=== PATIENT | female | born 1945 | race Caucasian/White ===

== ENCOUNTER → 2016-08-09 | Outpatient (CLI) | payer MEDICARE, BC ==
--- NOTE | 2016-08-09 22:22 | PN ---
71-year-old female patient who is coming in to discuss the results of the sleep study. The patient was suspected to have obstructive sleep apnea based on loud snoring and she had significant crowding of the posterior pharynx along with micrognathia. As such, she was subjected to a screening polysomnogram. The patient was found to have severe FLACO with an apnea-hypopnea index of 18.5. She also demonstrated severe nocturnal oxygen desaturation as the patient spent approximately 20% of the sleep time with a pulse ox of 90% and below. Sleep efficiency in general was poor, and I made recommendations for this patient to proceed with CPAP titration. Nevertheless, the patient was not convinced that this was significant enough and she has not set up titration yet. She is here to discuss with me the results. I am confident the patient will benefit from CPAP therapy based on her severity of illness and based on the various comorbidities and the symptomatic hypersomnia that she is having. BP is 170/70, pulse 74, respirations 16, temperature 97.6 and BMI is 44.9. GENERAL APPEARANCE: Calm, comfortable. HEENT: Negative for goiter or neck mass. Significant crowding of posterior pharynx along with micrognathia and overbite. LUNGS: Clear to auscultation. HEART: Sounds are regular rate and rhythm. Normal S1, S2. No S3, no S4. No murmurs. ABDOMEN: Soft, nontender, no organomegaly. EXTREMITIES: No edema. No cyanosis, or clubbing. IMPRESSION: 1. Severe symptomatic obstructive sleep apnea with an AHI of 80. 2. Obesity. BMI is 44. 3. Chronic hypersomnia. 4. Hypothyroidism. 5. Hypertension. 6. Hyperlipidemia. 7. Claustrophobia. PLAN: Proceed with CPAP titration, disease process was explained to the patient at length. Patient was agreeable to the treatment. Encourage weight loss. Encourage optimizing sleep hygiene measures. We will continue to follow.
== END | disposition home or self-care (01) ==
LOC: SLEEP 13:14
PROVIDERS: ATTEND Internal Medicine Critical Care Medicine
DX: G47.33 Obstructive sleep apnea (adult) (pediatric) (principal); E66.9 Obesity, unspecified; Z68.41 Body mass index [BMI] 40.0-44.9, adult; G47.10 Hypersomnia, unspecified; E03.9 Hypothyroidism, unspecified; I10 Essential (primary) hypertension; E78.5 Hyperlipidemia, unspecified; F40.240 Claustrophobia

== ENCOUNTER → 2016-11-08 | Outpatient (CLI) | payer MEDICARE, BC ==
--- NOTE | 2016-11-08 21:43 | PN ---
A 71-year-old female patient who was diagnosed having severe symptomatic obstructive sleep apnea with an AHI of 80. Currently, she is being treated with CPAP at a pressure of 14 cm of water. Clinically, the patient is feeling much better. She seems to be alert and awake. She reports marked improvement in sleep quality and she is benefiting from the CPAP treatment and she reports her level of alertness during the day is much improved. She is wearing it every night without any interruption and her CPAP use for more than 4 hours is approaching 93%. Average CPAP use 522 minutes. The AHI while on treatment is down to 2.2. The median air leak around the mask is around 7.7 L. The patient has no specific complaints. She is utilizing the treatment without any side effects or complications. She is trying to lose weight. She is also implementing good sleep hygiene measures. BP is 160/82, pulse 62, respirations 16, temperature is 97.7. Weight is 238, saturation 96% on room air. GENERAL APPEARANCE: Calm, comfortable. HEENT: Negative for JVD. There is no goiter, neck masses. LUNGS: Clear to auscultation. HEART: Sounds are regular rate and rhythm. Normal S1, S2. ABDOMEN: Soft, nontender. No organomegaly. EXTREMITIES: No edema. No cyanosis or clubbing. IMPRESSION: 1. Severe symptomatic obstructive sleep apnea with an apnea-hypopnea index of 80, currently on continuous positive airway pressure at a pressure of 14 cm of water. 2. Chronic hypersomnia, improved, and Magna score is down to 3. 3. Morbid obesity with a body mass index of 44. 4. Hypertension. 5. Hypothyroidism. 6. Hyperlipidemia. 7. Hypersomnia, improved. PLAN: 1. Continue CPAP at a level of pressure. 2. Continue the same mask interface, which is a medium size AirFit P10. 3. Encourage further weight loss. 4. If treatment is successful, see me back in followup as needed.
== END | disposition home or self-care (01) ==
LOC: SLEEP 13:09
PROVIDERS: ATTEND Internal Medicine Critical Care Medicine
DX: G47.33 Obstructive sleep apnea (adult) (pediatric) (principal); G47.13 Recurrent hypersomnia; E66.01 Morbid (severe) obesity due to excess calories; Z68.41 Body mass index [BMI] 40.0-44.9, adult

== ENCOUNTER → 2017-12-05 | Outpatient (CLI) | payer MEDICARE, BC ==
--- NOTE | 2017-12-05 19:47 | PN ---
PROGRESS NOTE Mariam is 72 with a known history of obstructive sleep apnea. The patient is coming in for an annual check. The patient has an AHI of 80 and she is on CPAP pressure of 14 cm of water. On today's evaluation she is very compliant and she continues to benefit from the treatment. Humidity has become an issue, as the patient is set at a humidity level of 6, and she is having an excessive amount of water gushing into her mask and then through her airways. She is averaging around 6.3 hours of CPAP use per night. Her weight is down by 2 pounds. Her AHI while on treatment is down to 1.4. Leak factor is 28 L/minute. Her CPAP use for more than 4 hours is 100%. She is using AirFit P10 nose pillows. REVIEW OF SYSTEMS: Twelve-point review of systems was done. Positive findings are mentioned above in the history of present illness. She is losing weight, benefitting from treatment. No major hypersomnia or sleepiness during the day. No snoring while on the treatment. No sleep deprivation. No substance abuse. No chest pain. No shortness of breath. No nausea or vomiting. No palpitation. No swelling in the lower extremities. PHYSICAL EXAMINATION: BP is 148/80, pulse 66, respirations 16, temperature 97.4, saturation 96% on room air. Weight is 236. Height is 5 feet 1 inch. GENERAL APPEARANCE: Calm, comfortable. Head is atraumatic, normocephalic. NECK: Supple. There is no JVD. No goiter or neck masses. Mallampati class IV. LUNGS: Clear to auscultation. HEART: Heart sounds are regular rate and rhythm. Normal S1, S2. No S3, S4. No murmurs. ABDOMEN: Soft, nontender. No organomegaly. EXTREMITIES: No edema. No cyanosis or clubbing. NEUROLOGIC: The patient is alert and oriented x3. There is no focal neurological deficit. PSYCHIATRY: Negative for anxiety or depression. IMPRESSION: Symptomatic obstructive sleep apnea with an apnea/hypopnea index of 80, currently successfully treated with a CPAP pressure of 14 cm of water. PLAN: 1. Continue CPAP at the same level of pressure, which is 14 cm. 2. Drop the humidity down to 3. 3. Continue using the AirFit P10 medium-size nose pillows and renew the CPAP supplies. 4. See me back in a year's time, earlier if needed. MMODL / IJN: [id number] /
== END | disposition home or self-care (01) ==
LOC: SLEEP 14:00
PROVIDERS: ATTEND Internal Medicine Critical Care Medicine
DX: G47.33 Obstructive sleep apnea (adult) (pediatric) (principal); Z53.9 Procedure and treatment not carried out, unspecified reason

== ENCOUNTER → 2019-01-15 | Outpatient (CLI) | payer MEDICARE, BC ==
--- NOTE | 2019-01-15 15:55 | PN ---
PROGRESS NOTE SLEEP CENTER PROGRESS NOTE: This patient is 73, coming in for an annual check regarding obstructive sleep apnea. She is morbidly obese and she has severe obstructive sleep apnea with an AHI of 80. The patient has been on CPAP for many years and currently she is on a pressure of 14 cm of water. On today's evaluation she is having some leaks and dryness in her nose while wearing the AirFit P10 nose pillows. Her leak factor is 32 L/minute on her compliancy data. Her humidity level is set at 5 and temperature of the tubing is at 75. No significant weight gain or weight loss. I checked her compliance data, and the patient is extremely compliant. She has been averaging around 7.2 hours of CPAP use per night, with CPAP use for more than 4 hours being 100%. Her AHI while on treatment is down to 1.4 and she has no specific complaints for now. REVIEW OF SYSTEMS: Fourteen-point review of systems was done. Positive findings are mentioned above in the history of present illness. No recent change in body weight. No major hypersomnia or sleepiness during the day. No snoring while on CPAP treatment. No swallowing of air. No belching or passing gas. No abdominal distention. No nausea or vomiting. No chest pain. No angina. No heartburn. No shortness of breath. No altered mentation at this point in time. No dysuria. No nocturia. PHYSICAL EXAMINATION: CURRENT VITALS: BP is 155/72, pulse 67, respirations 16, temperature 97, saturation 97% on room air. Weight is 242. Height is 5 feet 1 inch. Houston score is 5. BMI 45.7. GENERAL APPEARANCE: Calm, comfortable. HEAD: Atraumatic, normocephalic. NECK: Supple. No JVD. No goiter or neck mass. Mallampati class IV. LUNGS: Clear to auscultation. HEART: Heart sounds are regular rate and rhythm. Normal S1, S2. No S3, S4. No murmurs. ABDOMEN: Soft, nontender. No organomegaly. EXTREMITIES: No edema. No cyanosis or clubbing. NEUROLOGIC: The patient is alert and oriented x3. There are no focal neurological deficits. PSYCHIATRIC: Negative for anxiety or depression. IMPRESSION: 1. Severe obstructive sleep apnea with an apnea/hypopnea index of 80. The patient is currently successfully being treated with CPAP therapy at a pressure of 14 cm of water. 2. Obesity with body mass index of 45.7. 3. Hypersomnia, recovered. PLAN: 1. Offer the patient a DreamWear [id number] mask, medium size. 2. Keep the humidity level between 4 and 5. 3. Compliance data was checked. The patient's use is adequate and she is benefitting from the treatment. I will see her back in the office in a year's time, earlier if needed. Her treatment is successful for now. MMODL / IJN: [id number] / MTDD
== END | disposition home or self-care (01) ==
LOC: SLEEP 13:33
PROVIDERS: ATTEND Internal Medicine Critical Care Medicine
DX: G47.33 Obstructive sleep apnea (adult) (pediatric) (principal); E66.9 Obesity, unspecified; Z68.41 Body mass index [BMI] 40.0-44.9, adult; Z99.89 Dependence on other enabling machines and devices

== ENCOUNTER 2020-08-28 10:17 | Day surgery (SDC) | payer MEDICARE, BC ==
[2020-08-27 11:56] VITALS: BMI 36.6
[2020-08-28 10:44] VITALS: RESP 16; TEMP 98.3
[2020-08-28] MEDS ORDERED: LACTATED RINGERS 1,000 ML IV ONE (10:48)
[2020-08-28] MEDS ORDERED: ONDANSETRON 4 MG/2 ML VIAL IVP ONE (10:49)
[2020-08-28] MEDS ORDERED: LIDOCAINE 1% (10MG/ML) FOR IV START INTRADERMA ONE (10:49)
[2020-08-28] MEDS ORDERED: ONDANSETRON 4 MG/2 ML VIAL ONE (10:51)
[2020-08-28] MEDS ORDERED: PROPOFOL 10 MG/ML 20 ML VIAL IV ONE (11:10)
--- NOTE | 2020-08-28 11:12 | P.GSHP ---
History of Present Illness H&P Date: 08/28/20 75-year-old female presents for screening colonoscopy. She has never had a colonoscopy previously. Denies any blood in her stool. No family history of colon cancer. - Review of Systems All systems: negative Past Medical History Past Medical History: GERD/Reflux, Hyperlipidemia, Hypertension, Osteoarthritis (OA), Sleep Apnea/CPAP/BIPAP, Thyroid Disorder Additional Past Medical History / Comment(s): irregular heart rate. has cpap History of Any Multi-Drug Resistant Organisms: None Reported Past Surgical History: Hysterectomy, Joint Replacement Additional Past Surgical History / Comment(s): lt knee replacement Past Anesthesia/Blood Transfusion Reactions: Family History of Problems w/ An esthesia, Motion Sickness, Postoperative Nausea & Vomiting (PONV) Additional Past Anesthesia/Blood Transfusion Reaction / Comment(s): daughter PONV Smoking Status: Former smoker Medications and Allergies Home Medications Medication Instructions Recorded Confirmed Type Atorvastatin [Lipitor] 40 mg PO DAILY 08/27/20 08/28/20 History Cholecalciferol [Vitamin D3 (25 25 mcg PO DAILY 08/27/20 08/28/20 History Mcg = 1000 Iu)] Furosemide [Lasix] 40 mg PO DAILY 08/27/20 08/28/20 History Lorri 500 mg PO DAILY 08/27/20 08/28/20 History Hydrochlorothiazide 12.5 mg PO DAILY 08/27/20 08/28/20 History [hydroCHLOROthiazide] Levothyroxine Sodium [Synthroid] 112 mcg PO DAILY 08/27/20 08/28/20 History Losartan Potassium [Cozaar] 50 mg PO DAILY 08/27/20 08/28/20 History Multivitamins, Thera [Multivitamin 1 tab PO DAILY 08/27/20 08/28/20 History (formulary)] Naproxen Sodium [Aleve] 220 mg PO DAILY PRN 08/27/20 08/28/20 History Omeprazole 20 mg PO DAILY PRN 08/27/20 08/28/20 History Psyllium Husk (with Sugar) 1 gm PO DAILY 08/27/20 08/28/20 History [Metamucil Powder] Turmeric Root Extract [Turmeric] 500 mg PO DAILY 08/27/20 08/28/20 History Vitamin B Complex 1 each PO DAILY 08/27/20 08/28/20 History Allergies Allergy/AdvReac Type Severity Reaction Status Date / Time meperidine [From Demerol] Allergy Nausea & Verified 08/27/20 11:40 Vomiting Sulfa (Sulfonamide Allergy Itching Verified 08/27/20 11:40 Antibiotics) Surgical - Exam Osteopathic Statement: *. No significant issues noted on an osteopathic structural exam other than those noted in the History and Physical/Consult. Vital Signs Temp Pulse Resp BP Pulse Ox 98.3 F 76 16 173/75 95 08/28/20 10:38 08/28/20 10:38 08/28/20 10:38 08/28/20 10:38 08/28/20 10:38 - General well nourished, no distress - Eyes PERRL - ENT no hearing loss - Respiratory normal respiratory effort - Abdomen Abdomen: soft, non tender - Psychiatric oriented to time, oriented to person, oriented to place Assessment and Plan Plan: Plan is for screening colonoscopy. Risks, benefits and alternatives were provided to the patient. She did provide consent prior to attending the endoscopy suite.
--- NOTE | 2020-08-28 11:35 | P.PCN ---
Date of Procedure: 08/28/20 Preoperative Diagnosis: Screening for colon cancer Postoperative Diagnosis: Rectal polyp Procedure(s) Performed: Colonoscopy with cold forceps polypectomy Anesthesia: MAC Surgeon: Tae García Pathology: other (Rectal polyp) Condition: stable Disposition: same day Indications for Procedure: 75-year-old female presents for screening colonoscopy. She has never had a colonoscopy previously. She denies any blood in her stool and denies any family history of colon cancer. Risks, benefits and alternatives were provided to the patient and she did provide consent prior to attending the endoscopy suite. Operative Findings: Rectal polyp Description of Procedure: The patient was brought into the endoscopy suite. He was then placed in left lateral decubitus position and adequate sedation was achieved using conscious sedation. A digital rectal exam was performed and mild internal hemorrhoids were palpated. An endoscope was then placed in the rectum and advanced to the cecum as identified by landmarks including the appendiceal orifice and the ileocecal valve. The prep was good. The colonoscope was then slowly withdrawn, examining for any mucosal abnormalities. The cecum, ascending, transverse, descending and sigmoid colon were visualized adequately. There were no large neoplastic lesions throughout the colon. A small polyp was noted in the rectum. This was removed with cold forcep polypectomy. Was no evidence of diverticulosis. Retroflexion was performed in the rectum and internal hemorrhoids were visible. Excess air was removed, the colonoscope withdrawn and the procedure terminated. The patient was then transferred to the recovery unit in stable condition. Repeat colonoscopy should be performed in 5 years.
[2020-08-28 11:49] VITALS: BP 129/71; PULSE 56
== END 2020-08-28 12:19 | disposition home or self-care (01) ==
LOC: ORWHC2ENDO 10:17
PROVIDERS: ATTEND Surgery
DX: Z12.11 Encounter for screening for malignant neoplasm of colon (principal); K62.1 Rectal polyp; K64.8 Other hemorrhoids; K21.9 Gastro-esophageal reflux disease without esophagitis; E78.5 Hyperlipidemia, unspecified; I10 Essential (primary) hypertension; M19.90 Unspecified osteoarthritis, unspecified site; G47.33 Obstructive sleep apnea (adult) (pediatric); E07.9 Disorder of thyroid, unspecified; I49.9 Cardiac arrhythmia, unspecified; Z99.89 Dependence on other enabling machines and devices; Z90.710 Acquired absence of both cervix and uterus; Z96.652 Presence of left artificial knee joint; Z91.89 Other specified personal risk factors, not elsewhere classified; Z87.898 Personal history of other specified conditions; Z87.891 Personal history of nicotine dependence; Z79.899 Other long term (current) drug therapy; Z79.890 Hormone replacement therapy; Z79.1 Long term (current) use of non-steroidal anti-inflammatories (NSAID); Z88.5 Allergy status to narcotic agent; Z88.2 Allergy status to sulfonamides; Z84.89 Family history of other specified conditions
CPT/HCPCS: 88305; 45380; J2405; J2704

== ENCOUNTER → 2020-09-23 | Outpatient (CLI) | payer MEDICARE, BC ==
--- NOTE | 2020-09-24 10:32 | MM ---
Reason for exam: screening (asymptomatic). Last mammogram was performed 6 years and 2 months ago. History: Patient is postmenopausal. Physical Findings: A clinical breast exam by your physician is recommended on an annual basis and results should be correlated with mammographic findings. MG 3D Screening Mammo W/Cad Bilateral CC and MLO view(s) were taken. XCCL view(s) were taken of the left breast. Prior study comparison: August 07, 2014, bilateral MG screening mammo w CAD. October 04, 2004, bilateral screening mammogram. There are scattered fibroglandular densities. Stable benign calcifications. There is no discrete abnormality. No significant changes when compared with prior studies. ASSESSMENT: Benign, BI-RAD 2 RECOMMENDATION: Routine screening mammogram of both breasts in 1 year.
== END | disposition home or self-care (01) ==
LOC: RADMAMWWP 08:31
PROVIDERS: ATTEND Family Medicine
DX: Z12.31 Encounter for screening mammogram for malignant neoplasm of breast (principal); Z78.0 Asymptomatic menopausal state
CPT/HCPCS: 77063; 77067

== ENCOUNTER 2021-06-22 06:02 | Day surgery (SDC) | payer MEDICARE, BC ==
[2021-06-17 09:18] VITALS: BMI 36.6
[~2021-06-22 06:02] MED LIST: SODIUM CHLORIDE 0.9% 1,000 ML in EMPTY BAG 1 BAG IV ONE
[2021-06-22] MEDS ORDERED: HEPARIN SODIUM,PORCINE 2,500 UNIT in SODIUM CHLORIDE 0.9% 250 ML IRRIGATION PRN (06:03)
[2021-06-22] MEDS ORDERED: HEPARIN SODIUM,PORCINE 10,000 UNIT in SODIUM CHLORIDE 0.9% 1,000 ML IRRIGATION PRN (06:03)
[2021-06-22] MEDS ORDERED: ASPIRIN 325 MG TAB PO STA (06:03)
[2021-06-22] MEDS ORDERED: NITROGLYCERIN SL TABS 0.4 MG TAB SUBLINGUAL PRN (06:03)
[2021-06-22] MEDS ORDERED: ALPRAZolam 0.25 MG TAB PO PRN (06:03)
[2021-06-22] MEDS ORDERED: ALPRAZolam 0.5 MG TAB PO PRN (06:03)
[2021-06-22] MEDS ORDERED: SODIUM CHLORIDE 0.9% 1,000 ML in EMPTY BAG 1 BAG IV SCH (06:03)
[2021-06-22 06:39] VITALS: RESP 18; TEMP 97.9
[2021-06-22 06:39] LABS: Basophils # (A) 0.1 k/uL (0-0.2); Basophils % (A) 1 %; Eosinophils # (A) 0.4 k/uL (0-0.7); Eosinophils % (A) 5 %; HCT 39.8 % (34.0-46.0); Lymphocytes # (A) 2.1 k/uL (1.0-4.8); Lymphocytes % (A) 25 %; MCH 29.5 pg (25.0-35.0); MCHC 32.6 g/dL (31.0-37.0); MCV 90.3 fL (80.0-100.0); Mean Platelet Volume 7.3; Monocytes # (A) 0.4 k/uL (0-1.0); Monocytes % (A) 5 %; Neutrophils # (A) 5.2 k/uL (1.3-7.7); Neutrophils % (A) 62 %; Platelet Count 301 k/uL (150-450); RDW 15.3 % (11.5-15.5); WBC 8.4 k/uL (3.8-10.6)
[2021-06-22] MEDS ORDERED: fentaNYL (PF) 50 MCG/ML 2 ML AMP ONE (07:29)
[2021-06-22] MEDS ORDERED: LIDOCAINE 1% INJ 10MG/ML (20 ML MDV) SQ ONE (07:33)
[2021-06-22] MEDS ORDERED: fentaNYL (PF) 50 MCG/ML 2 ML AMP IV ONE (07:34)
[2021-06-22] MEDS ORDERED: VERAPAMIL SYRINGE (5 MG/10 ML) INTRAARTER ONE (07:34)
[2021-06-22] MEDS ORDERED: HEPARIN SODIUM 1,000 UN/ML (10ML VL) ONE (07:42)
[2021-06-22] MEDS ORDERED: HEPARIN SODIUM 1,000 UN/ML (10ML VL) IV ONE (07:43)
[2021-06-22] MEDS ORDERED: IOPAMIDOL-370 125ML BTL INJ ONE (07:46)
[2021-06-22] MEDS ORDERED: RX INFO: IV CONTRAST WAS GIVEN 1 EACH MISC MISCELLANE PRN (08:01)
[2021-06-22] MEDS ORDERED: SODIUM CHLORIDE 0.9% 1,000 ML IV SCH (08:15)
[2021-06-22] MEDS ORDERED: LOSARTAN 50 MG TAB PO SCH (09:00)
[2021-06-22] MEDS ORDERED: CHOLECALCIFEROL 25 MCG (1000 IU) TABLET PO SCH (09:00)
[2021-06-22] MEDS ORDERED: NON FORMULARY DRUG (Aspirin [Adult Low Dose Aspirin Ec] 81 MG Tablet) PO SCH (09:00)
[2021-06-22] MEDS ORDERED: ATORVASTATIN 40 MG TAB PO SCH (09:00)
[2021-06-22] MEDS ORDERED: LEVOTHYROXINE 112 MCG TAB PO SCH (09:00)
[2021-06-22 11:56] VITALS: BP 170/74; PULSE 60
--- NOTE | 2021-06-22 13:31 | CC ---
CARDIAC CATHETERIZATION REPORT Mrs. Miller is a 76-year-old female with known history of hypertension, hyperlipidemia, who has been complaining of progressive dyspnea on exertion. She underwent a myocardial perfusion imaging that revealed evidence of anterior wall ischemia. In view of that, recommendation made regarding cardiac catheterization. The procedure as well as the risks and the complications were discussed with the patient who is in full understanding and agreement. PROCEDURE DESCRIPTION: Patient was brought to rn cardiac cath in the fasting semi-sedated state after receiving fentanyl and Benadryl, achieving moderate conscious sedated state. Using Xylocaine anesthesia and Seldinger technique, a 6-Tristanian sheath was introduced in the right radial artery. Selective right and left coronary angiography was done using a 3.5 5- Tristanian right and left Sofiya catheter. Multiple views of the coronary arteries including hemiaxial views were obtained. Following that. a 5-Tristanian left Sofiya was used to cross the aortic valve and left ventricular end-diastolic pressure was calculated. Following that, catheter and sheath were removed. Hemostasis was obtained with deployment of TR band. There was no immediate complication. Patient is returned to her room in stable condition. Of note, the patient received 5000 units of intravenous heparin as well as intra-arterial verapamil. FINDINGS: LEFT MAIN: This is a large-sized vessel bifurcating into left circumflex, left anterior descending coronary artery. Left main coronary artery has no evidence of high-grade stenosis. LEFT ANTERIOR DESCENDING CORONARY ARTERY: This is a large-sized vessel reaching toward the apex with a wraparound apex segment giving rise to 2 diagonal branches. The first one is large in caliber and very proximal. In the mid segment of the LAD at the takeoff of the second small diagonal branch, there is a 30% to 40% plaque involving the takeoff of the diagonal branch. The rest of the vessel has no high-grade stenosis. LEFT CIRCUMFLEX: This is a small nondominant vessel giving rise to 2 obtuse marginal branches. The left circumflex as well as branches have no evidence of obstructive coronary artery disease. RIGHT CORONARY ARTERY: This is a large dominant vessel bifurcating into PDA and posterolateral segment and branches. The right coronary artery proximally has a 20% to 30% plaque. There is another plaque in the mid segment of 20% to 30%. The rest of the vessel has no high-grade stenosis. LEFT VENTRICULOGRAM: Left ventriculogram was not performed. HEMODYNAMICS: There was no gradient across the aortic valve. The left ventricular end-diastolic pressure was 20-25 mmHg. CONCLUSION: 1. Mild obstructive disease involving the left anterior descending artery and the right coronary artery. 2. Mildly elevated left ventricular end-diastolic pressure. RECOMMENDATIONS: In view of findings and anatomy, I recommend continued medical therapy with aggressive coronary risk factors modifications that have been initiated. Those findings and recommendations were discussed with the patient and her family, and they are full understanding and agreement. Duration of sedation 19 minutes. MMGABINOL / NAOMIEN: [id number] /
--- NOTE | 2021-06-22 13:34 | LTR ---
DATE OF SERVICE: 06/22/[address] King: I had the pleasure of performing coronary angiography on Mrs. Miller at [facility] on June 22 and a full copy of procedure note will be forwarded to you. In brief, she was found to have mild obstructive disease involving the LAD and the right coronary artery. At this time, I would recommend continued medical therapy with aggressive coronary risk factor modifications that have been initiated. Thank you again for allowing me to participate in her care. Please feel free to call for any questions. Sincerely, TRACI / NAOMIEN: [id number] /
== END 2021-06-22 12:27 | disposition home or self-care (01) ==
LOC: CATHCVL 06:02
PROVIDERS: ATTEND Internal Medicine Interventional Cardiology
DX: R94.39 Abnormal result of other cardiovascular function study (principal); I25.10 Atherosclerotic heart disease of native coronary artery without angina pectoris; I10 Essential (primary) hypertension; E78.00 Pure hypercholesterolemia, unspecified; E78.2 Mixed hyperlipidemia; Z72.0 Tobacco use; Z20.822 Contact with and (suspected) exposure to COVID-19; M19.90 Unspecified osteoarthritis, unspecified site; Z96.659 Presence of unspecified artificial knee joint; Z82.49 Family history of ischemic heart disease and other diseases of the circulatory system; Z79.82 Long term (current) use of aspirin; Z79.890 Hormone replacement therapy; Z79.899 Other long term (current) drug therapy; Z88.2 Allergy status to sulfonamides
CPT/HCPCS: 93458; 85025; 87635; C1894; C1769; J2001; J3010; J1644; Q9967

== ENCOUNTER 2023-05-10 13:38 | Inpatient (IN) | payer MEDICARE, BC ==
[2023-05-10] MEDS ORDERED: SODIUM CHLORIDE 0.9% 500 ML 500 ML IV STA (14:00)
[2023-05-10 14:13] LABS: Basophils # (A) 0.1 k/uL (0-0.2); Basophils % (A) 1 %; Eosinophils # (A) 0.4 k/uL (0-0.7); Eosinophils % (A) 4 %; HCT 40.2 % (34.0-46.0); HGB 13.2 gm/dL (11.4-16.0); Lymphocytes # (A) 2.7 k/uL (1.0-4.8); Lymphocytes % (A) 27 %; MCH 28.9 pg (25.0-35.0); MCHC 32.9 g/dL (31.0-37.0); MCV 87.7 fL (80.0-100.0); Mean Platelet Volume 7.8; Monocytes # (A) 0.4 k/uL (0-1.0); Monocytes % (A) 4 %; Neutrophils # (A) 6.5 k/uL (1.3-7.7); Neutrophils % (A) 64 %; Platelet Count 254 k/uL (150-450); RBC 4.58 m/uL (3.80-5.40); WBC 10.2 k/uL (3.8-10.6)
[2023-05-10 14:20] LABS: INR 0.9 (<1.2); Partial Thromboplastin Time 22.1 sec (22.0-30.0)
[2023-05-10 14:28] LABS: ALT 17 U/L (4-34); AST 27 U/L (14-36); African American GFR (CKD) 50 (>60 ml/min/1.73 sqM); Albumin 4.1 g/dL (3.5-5.0); Alkaline Phosphatase 118 U/L (38-126); Anion Gap 10 mmol/L; Blood Urea Nitrogen 15 mg/dL (7-17); Calcium 9.7 mg/dL (8.4-10.2); Carbon Dioxide 23 mmol/L (22-30); Chloride 105 mmol/L (98-107); Creatine Kinase 134 U/L (30-135); Glucose 94 mg/dL (74-99); Non-African American GFR(CKD) 43 (>60 ml/min/1.73 sqM); Potassium 4.1 mmol/L (3.5-5.1); Sodium 138 mmol/L (137-145); Total Bilirubin 0.7 mg/dL (0.2-1.3); Total Protein 7.6 g/dL (6.3-8.2)
--- NOTE | 2023-05-10 14:43 | XR ---
EXAMINATION TYPE: XR chest 2V DATE OF EXAM: 05/10/2023 COMPARISON: None HISTORY: 78-year-old female confusion, altered mental status TECHNIQUE: AP and lateral views FINDINGS: Heart borderline in size. Large patient body habitus with hazy densities likely relating to overlying soft tissue. No demarcus consolidation or pleural effusion seen. IMPRESSION: Borderline heart size. Limited by large body habitus. No focal infiltrate or pulmonary edema is seen.
--- NOTE | 2023-05-10 14:47 | CT ---
EXAMINATION TYPE: CT brain wo con CT DLP: 1094.8 mGycm, Automated exposure control for dose reduction was used. DATE OF EXAM: 05/10/2023 2:29 PM COMPARISON: None. CLINICAL INDICATION:Female, 78 years old with history of Neuro deficit, acute, stroke suspected, TECHNIQUE: Brain: Axial CT images of the brain were obtained with coronal and sagittal reformats created and rev iewed. Contrast used: None. Oral contrast used: None. FINDINGS: Brain: Extra-axial spaces: No abnormal extra-axial fluid collections. Ventricular system: Within normal limits Cerebral parenchyma: Cerebral atrophy. No acute intraparenchymal hemorrhage or mass effect. The iniguez -white junction is well differentiated. Scattered hypoattenuating areas are seen within the white mat ter. Cerebellum: Unremarkable. Mass effect: No evidence of midline shift. Intracranial vasculature: Atherosclerotic calcifications of the intracranial vessels. Soft tissues: Normal. Calvarium/osseous structures: No depressed skull fracture. Paranasal sinuses and mastoid air cells: Mild scattered paranasal sinus disease. Visualized orbits: Bilateral aphakia IMPRESSION: 1. No acute intracranial process. 2. Nonspecific white matter changes, likely secondary to chronic small vessel ischemic disease.
--- NOTE | 2023-05-10 15:28 | ED ---
General Adult HPI - General Chief complaint: Neuro Symptoms/Deficit Stated complaint: Headache,AMS Time Seen by Provider: 05/10/23 13:49 Source: patient, EMS, RN notes reviewed, old records reviewed Mode of arrival: EMS Limitations: no limitations - History of Present Illness Initial comments: 78-year-old female presenting for an episode of confusion, likely syncope. History is obtained from the patient and her granddaughter. She had developed some confusion after taking a shower and this was associated with a frontal headache. This occurred just prior to arrival. Headache is improving without treatment at the time my evaluation. She denies chest pain or abdominal pain. Denies palpitations. Denies any preceding symptoms. No history of seizure disorder. Patient states she feels fine but is willing to have an evaluation the emergency department. - Related Data Home Medications Medication Instructions Recorded Confirmed Atorvastatin [Lipitor] 40 mg PO DAILY 08/27/20 06/22/21 Cholecalciferol [Vitamin D3 (25 25 mcg PO DAILY 08/27/20 06/22/21 Mcg = 1000 Iu)] Furosemide [Lasix] 40 mg PO DAILY 08/27/20 06/22/21 Lorri 500 mg PO DAILY 08/27/20 06/22/21 Levothyroxine Sodium [Synthroid] 112 mcg PO DAILY 08/27/20 06/22/21 Losartan Potassium [Cozaar] 50 mg PO DAILY 08/27/20 06/22/21 Multivitamins, Thera [Multivitamin 1 tab PO DAILY 08/27/20 06/22/21 (formulary)] Naproxen Sodium [Aleve] 220 mg PO DAILY PRN 08/27/20 06/22/21 Omeprazole 20 mg PO DAILY PRN 08/27/20 06/22/21 Psyllium Husk (with Sugar) 1 gm PO DAILY PRN 08/27/20 06/22/21 [Metamucil Powder] Turmeric Root Extract [Turmeric] 500 mg PO DAILY 08/27/20 06/22/21 Vitamin B Complex 1 each PO DAILY 08/27/20 06/22/21 hydroCHLOROthiazide 12.5 mg PO DAILY 08/27/20 06/22/21 Aspirin [Adult Low Dose Aspirin EC] 81 mg PO DAILY 06/17/21 06/22/21 Allergies Allergy/AdvReac Type Severity Reaction Status Date / Time meperidine [From Demerol] Allergy Nausea & Verified 05/10/23 13:48 Vomiting Sulfa (Sulfonamide Allergy Itching Verified 05/10/23 13:48 Antibiotics) Review of Systems ROS Statement: Those systems with pertinent positive or pertinent negative responses have been documented in the HPI. ROS Other: All systems not noted in ROS Statement are negative. Past Medical History Past Medical History: GERD/Reflux, Hyperlipidemia, Hypertension, Osteoarthritis (OA), Sleep Apnea/CPAP/BIPAP, Thyroid Disorder Additional Past Medical History / Comment(s): irregular heart rate. has cpap History of Any Multi-Drug Resistant Organisms: None Reported Past Surgical History: Orthopedic Surgery Additional Past Surgical History / Comment(s): lt knee replacement Past Anesthesia/Blood Transfusion Reactions: Family History of Problems w/ Anesthesia, Motion Sickness, Postoperative Nausea & Vomiting (PONV) Additional Past Anesthesia/Blood Transfusion Reaction / Comment(s): daughter PONV Past Psychological History: No Psychological Hx Reported Smoking Status: Former smoker Past Alcohol Use History: None Reported Past Drug Use History: None Reported General Exam Limitations: no limitations General appearance: alert, in no apparent distress Head exam: Present: atraumatic, normocephalic Eye exam: Present: normal appearance, PERRL ENT exam: Present: normal exam Neck exam: Present: normal inspection. Absent: tenderness, meningismus Respiratory exam: Present: normal lung sounds bilaterally. Absent: respiratory distress, wheezes Cardiovascular Exam: Present: regular rate, normal rhythm GI/Abdominal exam: Present: soft. Absent: distended, tenderness, guarding Extremities exam: Present: normal inspection, normal capillary refill Neurological exam: Present: alert, oriented X3, CN II-XII intact. Absent: motor sensory deficit Psychiatric exam: Present: normal affect, normal mood Skin exam: Present: warm, dry, intact. Absent: cyanosis, diaphoretic Course Vital Signs 05/10/23 05/10/23 05/10/23 13:41 13:58 14:30 Temperature 97.9 F Pulse Rate 69 68 65 Respiratory 18 19 19 Rate Blood Pressure 210/98 178/77 171/72 O2 Sat by Pulse 97 96 98 Oximetry 05/10/23 05/10/23 15:27 16:41 Temperature Pulse Rate 55 L 75 Respiratory 17 18 Rate Blood Pressure 182/76 176/73 O2 Sat by Pulse 98 95 Oximetry Medical Decision Making - Medical Decision Making Was pt. sent in by a medical professional or institution ([facility], [employer], urgent care, hospital, or residential...) When possible be specific @ -No Did you speak to anyone other than the patient for history (EMS, parent, family, police, friend...)? What history was obtained from this source @ -No Did you review nursing and triage notes (agree or disagree)? Why? @ -I reviewed and agree with nursing and triage notes Were old charts reviewed (outside hosp., previous admission, EMS record, old EKG, old radiological studies, urgent care reports/EKG's, residential records)? Report findings @ -No old charts were reviewed Differential Diagnosis (chest pain, altered mental status, abdominal pain women, abdominal pain men, vaginal bleeding, weakness, fever, dyspnea, syncope, headache, dizziness, GI bleed, back pain, seizure, CVA, palpatations, mental health, musculoskeletal)? @ Differential Syncope: Valvular disease, hypertrophic cardiomyopathy, pulmonary embolism, tamponade, tachycardia, bradycardia, ID, hypovolemia, hemorrhage, dissection, anemia, intracranial hemorrhage, seizure, hypoglycemia, carbon monoxide poisoning, this is not meant to be an all-inclusive list. EKG interpreted by me (3pts min.). @ -Sinus bradycardia rate of 54, IN interval 194, QRS duration 94, QTC [address] segment elevation X-rays interpreted by me (1pt min.). @ Chest x-ray negative for acute cardiopulmonary disease CT interpreted by me (1pt min.). @ CT negative for intracranial hemorrhage or mass effect U/S interpreted by me (1pt. min.). @ -None done What testing was considered but not performed or refused? (CT, X-rays, U/S, labs)? Why? @ -None What meds were considered but not given or refused? Why? @ -None Did you discuss the management of the patient with other professionals (professionals i.e. [facility]ires, [employer], lab, RT, psych nurse, health care social worker, admissions representative, teacher, chief nursing officer, sample case porter)? Give summary @ -EMH Was smoking cessation discussed for >3mins.? @ -No Was critical care preformed (if so, how long)? @ -No Were there social determinants of health that impacted care today? How? (Homelessness, low income, unemployed, alcoholism, drug addiction, transportation, low edu. Level, literacy, decrease access to med. care, shelter, rehab)? @ -No Was there de-escalation of care discussed even if they declined (Discuss DNR or withdrawal of care, Hospice)? DNR status @ -No What co-morbidities impacted this encounter? (DM, HTN, Smoking, COPD, CAD, Cancer, CVA, ARF, Chemo, Hep., AIDS, mental health diagnosis, sleep apnea, morbid obesity)? @ -[Hypertension Was patient admitted / discharged? Hospital course, mention meds given and route, prescriptions, significant lab abnormalities, going to OR and other pertinent info. @ -[78-year-old female with an episode of syncope or brief syncopal syncope with momentary confusion. Patient alert and oriented at the time my evaluation. The intensive with a nonfocal neurologic exam, clear speech. Patient is in sinus rhythm. She has normal CBC, normal CMP, negative troponin. Urinalysis pending. She has a negative CT without signs of intracranial hemorrhage or mass effect. Patient will be observed overnight for telemetry, hydration. Undiagnosed new problem with uncertain prognosis? @ -No Drug Therapy requiring intensive monitoring for toxicity (Heparin, Nitro, Insulin, Cardizem)? @ -No Were any procedures done? @ -No Diagnosis/symptom? @ Syncope, dehydration Acute, or Chronic, or Acute on Chronic? @ -[Acute Uncomplicated (without systemic symptoms) or Complicated (systemic symptoms)? @ -default Side effects of treatment? @ -No Exacerbation, Progression, or Severe Exacerbation? @ -No Poses a threat to life or bodily function? How? (Chest pain, USA, ID, pneumonia, PE, COPD, DKA, ARF, appy, cholecystitis, CVA, Diverticulitis, Homicidal, Suicidal, threat to staff... and all critical care pts) @ -[Yes, arrhythmia - Lab Data Result diagrams: 05/10/23 14:04 05/10/23 14:04 Lab Results 05/10/23 05/10/23 05/10/23 Range/Units 14:04 14:04 14:04 WBC 10.2 (3.8-10.6) k/uL RBC 4.58 (3.80-5.40) m/uL Hgb 13.2 (11.4-16.0) gm/dL Hct 40.2 (34.0-46.0) % MCV 87.7 (80.0-100.0) fL MCH 28.9 (25.0-35.0) pg MCHC 32.9 (31.0-37.0) g/dL RDW 13.0 (11.5-15.5) % Plt Count 254 (150-450) k/uL MPV 7.8 Neutrophils % 64 % Lymphocytes % 27 % Monocytes % 4 % Eosinophils % 4 % Basophils % 1 % Neutrophils # 6.5 (1.3-7.7) k/uL Lymphocytes # 2.7 (1.0-4.8) k/uL Monocytes # 0.4 (0-1.0) k/uL Eosinophils # 0.4 (0-0.7) k/uL Basophils # 0.1 (0-0.2) k/uL PT 10.0 (10.0-12.5) sec INR 0.9 (<1.2) APTT 22.1 (22.0-30.0) sec Sodium (137-145) mmol/L Potassium (3.5-5.1) mmol/L Chloride (98-107) mmol/L Carbon Dioxide (22-30) mmol/L Anion Gap mmol/L BUN (7-17) mg/dL Creatinine (0.52-1.04) mg/dL Est GFR (CKD-EPI)AfAm (>60 ml/min/1.73 sqM) Est GFR (CKD-EPI)NonAf (>60 ml/min/1.73 sqM) Glucose (74-99) mg/dL Calcium (8.4-10.2) mg/dL Total Bilirubin (0.2-1.3) mg/dL AST (14-36) U/L ALT (4-34) U/L Alkaline Phosphatase (38-126) U/L Creatine Kinase (30-135) U/L Troponin I (0.000-0.034) ng/mL Total Protein (6.3-8.2) g/dL Albumin (3.5-5.0) g/dL Urine RBC 1 (0-5) /hpf Urine WBC 3 (0-5) /hpf Ur Squamous Epith Cells 5 H (0-4) /hpf Urine Mucus Rare H (None) /hpf 05/10/23 05/10/23 Range/Units 14:04 14:04 WBC (3.8-10.6) k/uL RBC (3.80-5.40) m/uL Hgb (11.4-16.0) gm/dL Hct (34.0-46.0) % MCV (80.0-100.0) fL MCH (25.0-35.0) pg MCHC (31.0-37.0) g/dL RDW (11.5-15.5) % Plt Count (150-450) k/uL MPV Neutrophils % % Lymphocytes % % Monocytes % % Eosinophils % % Basophils % % Neutrophils # (1.3-7.7) k/uL Lymphocytes # (1.0-4.8) k/uL Monocytes # (0-1.0) k/uL Eosinophils # (0-0.7) k/uL Basophils # (0-0.2) k/uL PT (10.0-12.5) sec INR (<1.2) APTT (22.0-30.0) sec Sodium 138 (137-145) mmol/L Potassium 4.1 (3.5-5.1) mmol/L Chloride 105 (98-107) mmol/L Carbon Dioxide 23 (22-30) mmol/L Anion Gap 10 mmol/L BUN 15 (7-17) mg/dL Creatinine 1.22 H (0.52-1.04) mg/dL Est GFR (CKD-EPI)AfAm 50 (>60 ml/min/1.73 sqM) Est GFR (CKD-EPI)NonAf 43 (>60 ml/min/1.73 sqM) Glucose 94 (74-99) mg/dL Calcium 9.7 (8.4-10.2) mg/dL Total Bilirubin 0.7 (0.2-1.3) mg/dL AST 27 (14-36) U/L ALT 17 (4-34) U/L Alkaline Phosphatase 118 (38-126) U/L Creatine Kinase 134 (30-135) U/L Troponin I 0.014 (0.000-0.034) ng/mL Total Protein 7.6 (6.3-8.2) g/dL Albumin 4.1 (3.5-5.0) g/dL Urine RBC (0-5) /hpf Urine WBC (0-5) /hpf Ur Squamous Epith Cells (0-4) /hpf Urine Mucus (None) /hpf Disposition Clinical Impression: Syncope, Dehydration Disposition: ADMITTED IP TO THIS HOSP Condition: Stable Is patient prescribed a controlled substance at d/c from ED?: No Referrals: Jostin King DO [Primary Care Provider] - 1-2 days Time of Disposition: 16:52
[2023-05-10 16:48] LABS: Mucus,Urine Rare /hpf; RBC,Urine 1 /hpf (0-5); Squamous Epithelial Cell,Urine 5 /hpf (0-4); WBC,Urine 3 /hpf (0-5)
[2023-05-10] MEDS ORDERED: ACETAMINOPHEN TAB 325 MG TAB PO PRN (16:48)
[2023-05-10] MEDS ORDERED: NALOXONE 0.4 MG/ML 1 ML VIAL IV PRN (16:48)
[2023-05-10] MEDS ORDERED: HYDROcodone/APAP 5-325MG 1 EACH TAB PO STA (18:00)
[2023-05-10] MEDS: SODIUM CHLORIDE 0.9% 1,000 ML IV SCH (18:10)
[2023-05-10 18:37] LABS: Appearance,Urine Cloudy (Clear); Color,Urine Light Yellow; Glucose,Urine (UA) Negative (Negative); PH, Urine 5.5 (5.0-8.0); Protein,Urine Negative (Negative); Specific Gravity,Urine 1.011 (1.001-1.035)
[2023-05-10 18:38] LABS: Bilirubin,Urine Negative (Negative); Blood,Urine Negative (Negative); Ketones,Urine Negative (Negative); Leukocyte Esterase,Urine Moderate (Negative); Nitrite,Urine Negative (Negative); Urobilinogen,Urine <2.0 mg/dL (<2.0)
[2023-05-10] MEDS ORDERED: ONDANSETRON 4 MG/2 ML VIAL IVP PRN (21:50)
[2023-05-10] MEDS ORDERED: PANTOPRAZOLE 40 MG TABLET PO PRN (21:51)
[2023-05-10] MEDS: BUTALB/APAP/CAFF 50-325-40MG TAB PO PRN (22:30)
[2023-05-11] MEDS: SODIUM CHLORIDE 0.9% 1,000 ML IV SCH ×2 (05:53→20:14)
[2023-05-11] MEDS: BUTALB/APAP/CAFF 50-325-40MG TAB PO PRN (08:12)
[2023-05-11] MEDS: HEPARIN SODIUM,PORCINE 5,000 UNIT/ML 1 ML VIAL SQ SCH ×2 (08:13→20:15)
[2023-05-11] MEDS ORDERED: FUROSEMIDE 40 MG TAB PO PRN (10:01)
[2023-05-11] MEDS ORDERED: NAPROXEN 250 MG TAB PO PRN (10:01)
[2023-05-11] MEDS: ATORVASTATIN 40 MG TAB PO SCH (10:24)
[2023-05-11 11:07] LABS: African American GFR (CKD) 51 (>60 ml/min/1.73 sqM); Anion Gap 7 mmol/L; Blood Urea Nitrogen 14 mg/dL (7-17); Calcium 9.4 mg/dL (8.4-10.2); Carbon Dioxide 26 mmol/L (22-30); Chloride 106 mmol/L (98-107); Glucose 100 mg/dL (74-99); Non-African American GFR(CKD) 44 (>60 ml/min/1.73 sqM); Potassium 4.8 mmol/L (3.5-5.1); Sodium 139 mmol/L (137-145)
[2023-05-11] MEDS: LOSARTAN-HCTZ 50-12.5 MG 1 EACH TAB PO SCH (11:42)
[2023-05-11] MEDS: LEVOTHYROXINE 112 MCG TAB PO SCH (11:42)
--- NOTE | 2023-05-11 12:29 | EEG ---
ELECTROENCEPHALOGRAM REPORT PREAMBLE: This is a 78-year-old female with possible syncope, altered mental status, rule out PGA. EEG FINDINGS: This is a 21-channel digital EEG recorded with video component, utilizing 10/[employer] System with referential and bipolar montages. Background consists of well-developed, well-regulated moderate voltage activity in 9 to 10 Hz alpha. Background is posterior dominant and reactive to eye opening and closing. Photic driving response was seen with some flash frequencies. Different stages of sleep are not clearly seen. No focal or generalized epileptiform activity was seen. EKG channel showed no obvious arrhythmia. IMPRESSION: This is a normal awake and drowsy EEG. No focal, lateralized or epileptiform activity was seen. MMODL / IJN: [id number] /
[2023-05-11] MEDS ORDERED: ASPIRIN 81 MG PO STA (12:36)
[2023-05-11] MEDS ORDERED: LORazepam 2 MG/ML INJ IV STA (13:12)
--- NOTE | 2023-05-11 13:39 | P.HPIM ---
History of Present Illness H&P Date: 05/11/23 Chief Complaint: Confusion * 78-year-old patient with past medical history significant for clinical obstructive sleep apnea, morbid obesity, hypothyroid, hypertension, hyperlip idemia presented to the emergency department with complains of confusion, headache. Patient was in normal state of health yesterday prior to coming in when after taking shallow patient started having frontal headache this was associated with episode of confusion. Patient upon presentation denied p aresthesia, fever, chills, chest pain, abdominal pain, palpitations. By the time of presentation in ER patient was doing well however but admitted for further evaluation * Workup obtained in ER included EKG which showed sinus bradycardia, chest x-ray negative for acute cardiac panel process, CT head negative for acute intracranial hemorrhage or mass effect * Blood work in ER included CBC which was essentially normal serum chemistry showed sodium 1:30 at BU and 15 creatinine 1.22 * Urinalysis showed cloudy urine * Patient was given IV fluids and neurology consulted for further evaluation, patient was noted to have significant hypertension home medications reviewed and reconciled REVIEW OF SYSTEMS: Confusion, headache CONSTITUTIONAL: No fever, no malaise, no fatigue. HEENT: No recent visual problems or hearing problems. Denied any sore throat. CARDIOVASCULAR: No chest pain, orthopnea, PND, no palpitations, no syncope. PULMONARY: No shortness of breath, no cough, no hemoptysis. GASTROINTESTINAL: No diarrhea, no nausea, no vomiting, no abdominal pain. NEUROLOGICAL: No headaches, no weakness, no numbness. HEMATOLOGICAL: Denies any bleeding or petechiae. GENITOURINARY: Denies any burning micturition, frequency, or urgency. MUSCULOSKELETAL/RHEUMATOLOGICAL: Denies any joint pain, swelling, or any muscle pain. ENDOCRINE: Denies any polyuria or polydipsia. PHYSICAL EXAMINATION: GENERAL: The patient is alert and oriented x3, not in any acute distress. HEENT: Pupils are round and equally reacting to light. EOMI. CARDIOVASCULAR: S1 and S2 present. No murmurs, rubs, or gallops. PULMONARY: Chest is clear to auscultation, no wheezing or crackles. ABDOMEN: Soft, nontender, nondistended, normoactive bowel sounds. No palpable organomegaly. MUSCULOSKELETAL: No joint swelling or deformity. EXTREMITIES: No cyanosis, clubbing, or pedal edema. NEUROLOGICAL: Gross neurological examination did not reveal any focal deficits. Past Medical History Past Medical History: GERD/Reflux, Hyperlipidemia, Hypertension, Osteoarthritis (OA), Sleep Apnea/CPAP/BIPAP, Thyroid Disorder Additional Past Medical History / Comment(s): irregular heart rate. has cpap History of Any Multi-Drug Resistant Organisms: None Reported Past Surgical History: Orthopedic Surgery Additional Past Surgical History / Comment(s): lt knee replacement Past Anesthesia/Blood Transfusion Reactions: Family History of Problems w/ Anesthesia, Motion Sickness, Postoperative Nausea & Vomiting (PONV) Additional Past Anesthesia/Blood Transfusion Reaction / Comment(s): daughter PONV Past Psychological History: No Psychological Hx Reported Additional Psychological History / Comment(s): claustrophobic Smoking Status: Former smoker Past Alcohol Use History: None Reported Additional Past Alcohol Use History / Comment(s): smoked 15 years quit 1976 Past Drug Use History: None Reported Medications and Allergies Home Medications Medication Instructions Recorded Confirmed Type Atorvastatin [Lipitor] 40 mg PO DAILY 08/27/20 05/10/23 History Furosemide [Lasix] 40 mg PO DAILY PRN 08/27/20 05/10/23 History Levothyroxine Sodium [Synthroid] 112 mcg PO DAILY 08/27/20 05/10/23 History Naproxen Sodium [Aleve] 220 mg PO DAILY PRN 08/27/20 05/10/23 History Omeprazole 20 mg PO DAILY PRN 08/27/20 05/10/23 History Losartan/Hydrochlorothiazide 1 tab PO DAILY 05/10/23 05/10/23 History [Hyzaar 100-25 Tablet] Allergies Allergy/AdvReac Type Severity Reaction Status Date / Time meperidine [From Demerol] Allergy Nausea & Verified 05/10/23 13:48 Vomiting Sulfa (Sulfonamide Allergy Itching Verified 05/10/23 13:48 Antibiotics) Physical Exam Vitals: Vital Signs Temp Pulse Pulse Resp BP BP BP 05/11/23 08:02 05/11/23 08:00 64 18 05/11/23 07:25 98.4 F 64 18 05/11/23 02:54 97.8 F 51 L 17 168/81 05/10/23 21:22 97.4 F L 64 18 170/78 05/10/23 20:31 60 18 146/60 05/10/23 19:02 64 18 156/69 05/10/23 18:17 05/10/23 18:16 97.7 F 74 18 159/57 05/10/23 18:14 05/10/23 18:10 68 18 164/70 05/10/23 16:41 75 18 176/73 05/10/23 15:27 55 L 17 182/76 05/10/23 14:30 65 19 171/72 05/10/23 13:58 68 19 178/77 05/10/23 13:41 97.9 F 69 18 210/98 BP BP BP Pulse Ox 05/11/23 08:02 97 05/11/23 08:00 05/11/23 07:25 172/81 98 05/11/23 02:54 99 05/10/23 21:22 96 05/10/23 20:31 96 05/10/23 19:02 97 05/10/23 18:17 170/60 05/10/23 18:16 95 05/10/23 18:14 153/58 05/10/23 18:10 95 05/10/23 16:41 95 05/10/23 15:27 98 05/10/23 14:30 98 05/10/23 13:58 96 05/10/23 13:41 97 Intake and Output 05/10/23 05/11/23 05/11/23 22:59 06:59 14:59 Other: Voiding Method Toilet # Voids 1 1 Weight 110.677 kg Results CBC & Chem 7: 05/10/23 14:04 05/11/23 10:28 Labs: Abnormal Lab Results - Last 24 Hours (Table) 05/10/23 05/10/23 Range/Units 14:04 14:04 Creatinine 1.22 H (0.52-1.04) mg/dL Urine Appearance Cloudy H (Clear) Ur Squamous Epith Cells 5 H (0-4) /hpf Urine Mucus Rare H (None) /hpf Assessment and Plan Assessment: Assessment and plan Acute encephalopathy rule out CVA Hypertensive urgency with intractable headache History of hypertension Hypothyroid Acute kidney injury * In regards to acute encephalopathy, neurochecks ordered every 4 hours, CT head obtained negative intracranial processes neurology consulted EEG ordered, echocardiogram, MRI brain and MRA angiogram head and neck and carotid ultrasound ordered * In regards to hypertensive urgency continue home medication including losartan, hydrochlorothiazide, patient resuscitated with fluid as well follow- up blood work ordered * In regards to hypothyroid continue Synthyroid * In regards to acute kidney injury follow-up and creatinine levels * Patient will need physical therapy occupational therapy evaluation * CODE STATUS is full code Time with Patient: Greater than 30
[2023-05-11] MEDS: amLODIPine 5 MG TAB PO SCH (13:55)
--- NOTE | 2023-05-11 14:18 | P.CNNES ---
History of Present Illness Consult date: 05/11/23 Requesting physician: Raiza Bowman Reason for Consult: presyncope vs possible seizure History of Present Illness: Patient is a 78-year-old right-handed female came to the hospital by ambulance yesterday at 1:38 PM for episode of altered mental status. Patient's daughter was present, who provided with a history, exactly as mentioned below in the EMS flow sheet. As per EMS flow sheet, when they arrived, followed patient in her kitchen yelling at her family that nothing is wrong and she is fine, patient was red faced upset that 911 was called. Patient did not want EMS and was not going to the hospital as she was yelling at everyone. Family was removed from the situation. EMS discussed with the patient, who mentioned that she was downstairs in the basement getting a pot for dinner and came upstairs to a bunch of people in the home and was surprised that 911 and EMS were called and were coming into her home. Her granddaughter stated that patient came out of the shower confused walking around not acting right, she stated that her grandmother stated that something was wrong. She had a blank look on her face and she kept on repeating "I'm sitting", and she was sweating, not looked good. She was not responding well, and was "out of it". She was somewhat disoriented. She had followed her to the kitchen and sat her down in the chair. Patient could not answer any questions as she was talking and not making any sense. She had called 911 and then called her mother for help. This event continued as we arrived. Patient does not remember the event during the examination. Patient at that time was alert and oriented 3 her blood glucose was 1 60 mg/dL, blood pressure 180/100, heart rate 60, lungs were clear. EKG shows normal sinus rhythm without arrhythmia. Patient does not remember many details about the incident although she does remember her entire EMS ride to the hospital. Patient at present complaining of headache 7-8/10, very severe, left frontal orbital, steady ache, throbbing. Patient denies any stroke symptoms like slurred speech, facial droop, problem with the vision, focal numbness tingling or weakness. No previous history of stroke or TIA. Denies any head injury. No family history of cerebral aneurysm. Patient states that she does go to chiropractic treatment frequently for long time in the last time she did was on Monday, which is about a day prior. The c hiropractor adjusted her back, and also neck but that is not new, has been going on for long time. Vital signs on arrival blood pressure 210/98, which improved to 178/77, pulse rate 69, temperature 97.9. Blood tests normal CBC, PT/PTT, CMP, UA. CT head revealed no acute intracranial process. Nonspecific fragmented changes, likely secondary to chronic small vessel ischemic disease. EKG shows sinus bradycardia with heart rate of 54. Chest x-ray showed borderline heart size. Limited by large body habitus. No focal infiltrates or pulmonary edema is seen. But patient's daughter report, she is still not back to baseline. She is only about 90% back to normal yet. Patient complains of significant headache involving the left frontal orbital region. Patient has history of hypertension for around 10-20 years, denies diabetes. She smoked less than one pack per day for 15 years, quit at age 32 in 1976. Denies any alcohol use. Patient has history of migraine headaches for long time, which occurs about once a month, throbbing headache, and stays until she throws up. Patient believes her current headache is worse than her usual migraine. Patient takes omeprazole 20 mg, naproxen, Lipitor 40 mg, levothyroxine, Lasix and losartan/HCTZ. Patient does not take any antiplatelet medication at home. Review of Systems Constitutional: Denies chills, Denies fever Eyes: denies blurred vision, denies diplopia, denies pain Ears: right: decreased hearing, deny: earache Ears, nose, mouth and throat: Reports headache, Denies sore throat Cardiovascular: Reports shortness of breath, Denies chest pain Respiratory: Reports cough, Denies excessive sputum Gastrointestinal: Denies abdominal pain, Denies diarrhea, Denies nausea, Denies vomiting Genitourinary: Denies dysuria, Denies hematuria Musculoskeletal: Reports low back pain, Reports neck pain, Denies myalgias Integumentary: Reports rash, Denies pruritus Neurological: Reports as per HPI Psychiatric: Denies anxiety, Denies depression Endocrine: Reports fatigue, Reports weight change Hematologic/Lymphatic: Denies easy bleeding, Denies easy bruising Past Medical History Past Medical History: GERD/Reflux, Hyperlipidemia, Hypertension, Osteoarthritis (OA), Sleep Apnea/CPAP/BIPAP, Thyroid Disorder Additional Past Medical History / Comment(s): irregular heart rate. has cpap History of Any Multi-Drug Resistant Organisms: None Reported Past Surgical History: Orthopedic Surgery Additional Past Surgical History / Comment(s): lt knee replacement Past Anesthesia/Blood Transfusion Reactions: Family History of Problems w/ Anesthesia, Motion Sickness, Postoperative Nausea & Vomiting (PONV) Additional Past Anesthesia/Blood Transfusion Reaction / Comment(s): daughter PONV Past Psychological History: No Psychological Hx Reported Additional Psychological History / Comment(s): claustrophobic Smoking Status: Former smoker Past Alcohol Use History: None Reported Additional Past Alcohol Use History / Comment(s): smoked 15 years quit 1976 Past Drug Use History: None Reported Medications and Allergies Home Medications Medication Instructions Recorded Confirmed Type Atorvastatin [Lipitor] 40 mg PO DAILY 08/27/20 05/10/23 History Furosemide [Lasix] 40 mg PO DAILY PRN 08/27/20 05/10/23 History Levothyroxine Sodium [Synthroid] 112 mcg PO DAILY 08/27/20 05/10/23 History Naproxen Sodium [Aleve] 220 mg PO DAILY PRN 08/27/20 05/10/23 History Omeprazole 20 mg PO DAILY PRN 08/27/20 05/10/23 History Losartan/Hydrochlorothiazide 1 tab PO DAILY 05/10/23 05/10/23 History [Hyzaar 100-25 Tablet] Allergies Allergy/AdvReac Type Severity Reaction Status Date / Time meperidine [From Demerol] Allergy Nausea & Verified 05/10/23 13:48 Vomiting Sulfa (Sulfonamide Allergy Itching Verified 05/10/23 13:48 Antibiotics) Physical Examination - Vital Signs Vital Signs: Vital Signs Temp Pulse Pulse Resp BP BP BP 05/11/23 08:02 05/11/23 08:00 64 18 05/11/23 07:25 98.4 F 64 18 05/11/23 02:54 97.8 F 51 L 17 168/81 05/10/23 21:22 97.4 F L 64 18 170/78 05/10/23 20:31 60 18 146/60 05/10/23 19:02 64 18 156/69 05/10/23 18:17 05/10/23 18:16 97.7 F 74 18 159/57 05/10/23 18:14 05/10/23 18:10 68 18 164/70 05/10/23 16:41 75 18 176/73 05/10/23 15:27 55 L 17 182/76 05/10/23 14:30 65 19 171/72 05/10/23 13:58 68 19 178/77 05/10/23 13:41 97.9 F 69 18 210/98 BP BP BP Pulse Ox 05/11/23 08:02 97 05/11/23 08:00 05/11/23 07:25 172/81 98 05/11/23 02:54 99 05/10/23 21:22 96 05/10/23 20:31 96 05/10/23 19:02 97 05/10/23 18:17 170/60 05/10/23 18:16 95 05/10/23 18:14 153/58 05/10/23 18:10 95 05/10/23 16:41 95 05/10/23 15:27 98 05/10/23 14:30 98 05/10/23 13:58 96 05/10/23 13:41 97 Intake and Output 05/10/23 05/11/23 05/11/23 22:59 06:59 14:59 Other: Voiding Method Toilet # Voids 1 1 Weight 110.677 kg Patient is an elderly female, very pleasant, in no acute distress. Patient is alert awake oriented to time place and person. Speech and language functions are normal. Patient can name and repeat very well. No aphasia or dysarthria. Attention, concentration and fund of knowledge is adequate. On cranial nerve examination, pupils are equal, round and reacting to light, visual [place] are full on confrontation, with no neglect on double simultaneous stimulation. Extraocular muscles are intact with no nystagmus. Face is symmetric, tongue protrudes to the midline. Palatal elevation and sensation normal, hearing is significantly decreased bilaterally, right much worse than left and shoulder shrug normal, facial sensation normal. On muscle strength testing, there is no pronator drift and the strength is normal in arms and legs distally and proximally, except right deltoid which is 5-which she attributes to some shoulder issues. Deep tendon reflexes are symmetric 1 in the upper limbs, trace in the lower limbs and plantars downgoing bilaterally. Sensory to touch is equal with no neglect on double simultaneous stimulation. Cerebellar function showed no ataxia for [id number] testing. No dysdiadochokinesia. No ataxia for [id number] testing on either side. Tone and bulk of muscles normal. Gait deferred.. On general examination, there is no carotid bruit or murmur, S1-S2 audible. Chest is clear on consultation. Abdomen is soft nontender. No organomegaly, bowel sounds present. Peripheral pulses are present. Patient has moderate peripheral edema, more on the right as compared to left. Results - Laboratory Findings CBC and BMP: 05/10/23 14:04 05/11/23 10:28 Abnormal Lab Findings: Abnormal Labs 05/10/23 05/10/23 14:04 14:04 Creatinine 1.22 H Urine Appearance Cloudy H Ur Squamous Epith Cells 5 H Urine Mucus Rare H Assessment and Plan Assessment: * Episode of altered mental status, agitation, confusion, not oriented, unclear etiology. Patient believes she is back to normal, although patient's daughters believes that she is still not back to 100% normal. There were no associated focal neurological symptoms. Rule out stroke/TIA, focal seizure, transient global amnesia or hypertensive encephalopathy * Hypertension, uncontrolled * Hyperlipidemia * Obesity * X tobacco use Plan: * Patient's daughter believes that she is still not back to baseline, and patient still has significant headache. We will perform stroke/TIA workup. * MRI of the brain without contrast, evaluate for acute CVA * MRA of the head, rule out cerebral aneurysm. * 2-D echo with bubble study to rule out PFO * Carotid Doppler, rule out stenosis * EEG rule out epileptiform activity. * Fasting a.m. lipid panel * Hemoglobin A1c * B12, folate * Optimize control of blood pressure. * Patient was not taking any antiplatelet medication at home. Patient was given a loading dose of aspirin 324 mg 1 dose and then started on aspirin 81 mg daily. * Neuro checks. * Telemetry monitoring rule out any arrhythmia * DVT prophylaxis: Heparin 5000 units subcu every 8 hours * Neurology will continue to follow. Thank you for the consult.
--- NOTE | 2023-05-11 15:01 | XR ---
EXAMINATION TYPE: XR mandible complete DATE OF EXAM: 05/11/2023 COMPARISON: NONE HISTORY: Status post dental extraction TECHNIQUE: 5 views of the mandible are submitted. FINDINGS: Mandible appears to be grossly intact. No bony destructive process is identified. No eviden ce for fracture or osseous lesion. TMJs appear symmetric. IMPRESSION: As above
[2023-05-12] MEDS: SODIUM CHLORIDE 0.9% 1,000 ML IV SCH (04:14)
[2023-05-12] MEDS: LEVOTHYROXINE 112 MCG TAB PO SCH (06:04)
--- NOTE | 2023-05-12 08:03 | US ---
EXAMINATION TYPE: US carotid duplex BILAT DATE OF EXAM: 05/11/2023 Exam done portable COMPARISON: NONE CLINICAL INDICATION: Female, 78 years old with history of TIA; TECHNIQUE: Carotid duplex ultrasound examination. Indirect Doppler criteria was utilized. FINDINGS: EXAM MEASUREMENTS: RIGHT: Peak Systolic Velocity (PSV) cm/sec ----- Right CCA: 96.9 ----- Right ICA: 79.7 ----- Right ECA: 100.0 ICA/CCA ratio: 0.8 RIGHT: End Diastole cm/sec ----- Right CCA: 11.2 ----- Right ICA: 17.2 ----- Right ECA: 0.0 LEFT: Peak Systolic Velocity (PSV) cm/sec ----- Left CCA: 79.7 ----- Left ICA: 91.8 ----- Left ECA: 96.9 ICA/CCA ratio: 1.2 LEFT: End Diastole cm/sec ----- Left CCA: 8.9 ----- Left ICA: 17.2 ----- Left ECA: 0.0 VERTEBRALS (direction of flow): Right Vertebral: Antegrade Left Vertebral: Antegrade Rhythm: Normal No significant stenosis IMPRESSION: Less than 50% stenosis of the bilateral carotid bifurcations. Criteria for Assigning % of Stenosis / Diameter reduction (Estimation based on the indirect measurements of the internal carotid artery velocities (ICA PSV). 1. Normal (no stenosis)=ICA PSV < 125 cm/s: ratio < 2.0: ICA EDV<40 cm/s. 2. Less than 50% stenosis=ICA PSV < 125 cm/s: ratio < 2.0: ICA EDV<40 cm/s. 3. 50 to 69% stenosis=ICA PSV of 125 to 230 cm/s: ration 2.0 ? 4.0: ICA EDV 40-100 cm/s. 4. Greater than 70% stenosis to near occlusion= ICA PSV > 230 cm/s: ratio > 4.0: ICA EDV > 100 cm/s. 5. Near occlusion= ICA PSV velocities may be low or undetectable: variable ratio and ICA EDV. 6. Total occlusion=unable to detect flow.
[2023-05-12 08:39] LABS: BUN/Creat Ratio 12.77 Ratio (12.00-20.00); Blood Urea Nitrogen 16.6 mg/dL (9.0-27.0); Calcium 9.5 mg/dL (8.7-10.3); Carbon Dioxide 22.9 mmol/L (21.6-31.8); Chloride 107 mmol/L (96-109); Chol/HDL Ratio 2.25 Ratio; Glucose 94 mg/dL (70-110); Potassium 4.3 mmol/L (3.5-5.5); Sodium 139 mmol/L (135-145); VLDL Calculation 17.04 mg/dL (5.00-40.00)
[2023-05-12 09:08] LABS: HCT 37.4 % (37.2-46.3); HGB 11.7 g/dL (12.0-15.0); MCH 27.9 pg (27.0-32.0); MCHC 31.3 g/dL (32.0-37.0); Mean Platelet Volume 10.8 FL (9.5-12.2); NRBC Per 100 WBC 0 X 10*3/uL (0.00-0.01); Platelet Count 267 X 10*3/uL (140-440); RDW 13.5 % (11.5-14.5); WBC 8.11 X 10*3/uL (4.50-10.00)
[2023-05-12] MEDS: LOSARTAN-HCTZ 50-12.5 MG 1 EACH TAB PO SCH (09:39)
[2023-05-12] MEDS: ASPIRIN 81 MG PO SCH (09:39)
[2023-05-12] MEDS: amLODIPine 5 MG TAB PO SCH (09:39)
[2023-05-12] MEDS: ATORVASTATIN 40 MG TAB PO SCH (09:39)
[2023-05-12] MEDS: HEPARIN SODIUM,PORCINE 5,000 UNIT/ML 1 ML VIAL SQ SCH ×2 (09:47→20:48)
[2023-05-12] MEDS ORDERED: LORazepam 2 MG/ML INJ ONE (10:13)
--- NOTE | 2023-05-12 11:41 | MR ---
EXAMINATION TYPE: MR brain wo con DATE OF EXAM: 05/12/2023 11:16 AM CLINICAL INDICATION:Female, 78 years old with history of TIA; [facility], COMPARISON: CT brain 05/08/2023.. TECHNIQUE: Multi planar, multi sequence imaging was performed through the brain including: T1, T2, In version recovery, Diffusion weighted imaging, and gradient echo imaging. No gadolinium was given. FINDINGS: Scattered areas of restricted diffusion involving the left temporal lobe and left parietal lobe. Areas involving the insular cortex as well. Cerebral atrophy with proportional dilation of vent ricular system. Scattered foci of high T2 signal intensity are seen within the periventricular white matter. Midline structures show no abnormality. The susceptibility weighted images do not reveal an y evidence for micro-hemorrhage. The bone marrow signal is within normal limits. Paranasal sinuses and mastoid air cells: No significant paranasal sinus disease. Visualized orbits: Orbital contents are intact. IMPRESSION: 1. Acute/subacute CVA with scattered microinfarcts involving the left temporal and left frontal lobe. 2. Nonspecific white matter changes, likely secondary to small vessel ischemic disease.
--- NOTE | 2023-05-12 11:44 | MR ---
EXAMINATION TYPE: MR angio head wo con DATE OF EXAM: 05/12/2023 11:16 AM CLINICAL INDICATION:Female, 78 years old with history of CVA; COMPARISON: Same day MRI brain. CT brain 05/10/2023 Technical: 3-D [id number] Axial with MIP reconstruction created on a separate workstation.. IV Contrast: None Findings: Vertebral arteries: The vertebral arteries are patent. Vertebral arteries are: Codominant. Basilar artery: The basilar artery is intact. The basilar artery bifurcation is normal. Internal Carotid arteries: The cervical, petrous, cavernous and supraclinoid segments are normal. LASHAWN: Patent with no evidence of aneurysm. ACOM: Present without evidence of aneurysm. MCA: Patent with no evidence of aneurysm. [employer] COREROOM: Patent with no evidence of aneurysm. PCOM: Hypoplastic bilaterally. IMPRESSION: No evidence of aneurysm or significant stenosis.
--- NOTE | 2023-05-12 13:00 | P.PN ---
Subjective Progress Note Date: 05/12/23 * 78-year-old patient with past medical history significant for clinical obstructive sleep apnea, morbid obesity, hypothyroid, hypertension, hyperlipidemia presented to the emergency department with complains of confusion, headache. Patient was in normal state of health yesterday prior to coming in when after taking shallow patient started having frontal headache this was associated with episode of confusion. Patient upon presentation denied paresthesia, fever, chills, chest pain, abdominal pain, palpitations. By the time of presentation in ER patient was doing well however but admitted for further evaluation * Workup obtained in ER included EKG which showed sinus bradycardia, chest x-ray negative for acute cardiac panel process, CT head negative for acute intracranial hemorrhage or mass effect * Blood work in ER included CBC which was essentially normal serum chemistry showed sodium 1:30 at BU and 15 creatinine 1.22 * Urinalysis showed cloudy urine * Patient was given IV fluids and neurology consulted for further evaluation, patient was noted to have significant hypertension home medications reviewed and reconciled * 05/12/2023: Patient seen and evaluated bedside, patient is awake and alert, patient denies of any focal deficit, patient does complain of right ear congestion will start on Debrox eardrops, MRI brain reviewed concern for acute/subacute CVA, neurology following continue patient on aspirin and Plavix, echocardiogram ordered and pending at this time REVIEW OF SYSTEMS: Confusion, headache IMPROVED CONSTITUTIONAL: No fever, no malaise, no fatigue. HEENT: No recent visual problems or hearing problems. Denied any sore throat. CARDIOVASCULAR: No chest pain, orthopnea, PND, no palpitations, no syncope. PULMONARY: No shortness of breath, no cough, no hemoptysis. GASTROINTESTINAL: No diarrhea, no nausea, no vomiting, no abdominal pain. NEUROLOGICAL: No headaches, no weakness, no numbness. HEMATOLOGICAL: Denies any bleeding or petechiae. GENITOURINARY: Denies any burning micturition, frequency, or urgency. MUSCULOSKELETAL/RHEUMATOLOGICAL: Denies any joint pain, swelling, or any muscle pain. ENDOCRINE: Denies any polyuria or polydipsia. PHYSICAL EXAMINATION: GENERAL: The patient is alert and oriented x3, not in any acute distress. HEENT: Pupils are round and equally reacting to light. EOMI. CARDIOVASCULAR: S1 and S2 present. No murmurs, rubs, or gallops. PULMONARY: Chest is clear to auscultation, no wheezing or crackles. ABDOMEN: Soft, nontender, nondistended, normoactive bowel sounds. No palpable organomegaly. MUSCULOSKELETAL: No joint swelling or deformity. EXTREMITIES: No cyanosis, clubbing, or pedal edema. NEUROLOGICAL: Gross neurological examination did not reveal any focal deficits. Objective - Vital Signs Vital signs: Vital Signs Temp 97.8 F 05/12/23 07:00 Pulse 64 05/12/23 07:00 Resp 12 05/12/23 07:00 BP 157/66 05/12/23 07:00 Pulse Ox 97 05/12/23 07:00 FiO2 Intake & Output 05/11/23 05/12/23 05/12/23 18:59 06:59 18:59 Intake Total 298 100 Output Total 50 Balance 248 100 Intake: Oral 298 100 Output: Post Void Residual 50 Other: Voiding Method Toilet Toilet # Voids 4 7 # Bowel Movements 2 - Labs CBC & Chem 7: 05/12/23 04:37 05/12/23 04:37 Labs: Abnormal Lab Results - Last 24 Hours (Table) 05/11/23 05/12/23 05/12/23 Range/Units 10:28 04:37 04:37 Hgb 11.7 L (12.0-15.0) g/dL MCHC 31.3 L (32.0-37.0) g/dL Est GFR (CKD-EPI) 43 L (>=60) Hemoglobin A1c 6.1 H (<=6.0) % Assessment and Plan Assessment: Assessment and plan Acute encephalopathy secondary to CVA, acute/subacute microinfarct left temporal/ left frontal lobe Hypertensive urgency with intractable headache History of hypertension Hypothyroid Acute kidney injury * In regards to acute encephalopathy, subacute/acute CVA >> neurochecks ordered every 4 hours, CT head obtained negative intracranial processes neurology consulted EEG ordered, echocardiogram PENDING , MRI brain and MRA angiogram head and neck and carotid ultrasound reviewed, continue aspirin, Plavix, Lipitor, neurology following * In regards to hypertensive urgency continue home medication including losartan, hydrochlorothiazide, patient resuscitated with fluid as well follow- up blood work ordered * In regards to hypothyroid continue Synthyroid * In regards to acute kidney injury follow-up and creatinine levels * Patient will need physical therapy occupational therapy evaluation * CODE STATUS is full code Time with Patient: Greater than 30
[2023-05-12] MEDS: CLOPIDOGREL 75 MG TAB PO SCH (14:23)
[2023-05-12] MEDS: CARBAMIDE PEROXIDE 6.5% DROPS 15 ML BTL RIGHT EAR SCH ×2 (14:23→20:48)
--- NOTE | 2023-05-12 15:59 | CA ---
Transthoracic Echo Report Name: Mariam Miller Age: 78 Gender: F : 1945 Exam Date: 05/12/2023 14:00 Exam Location: [facility] Ht (in): 62 Wt (lb): 244 Ordering Physician: Cezar Barron MD Attending/Referring Phys: Occupational Therapy Co Director sEha Iverson RDCS Procedure CPT: Indications: tia Cardiac Hx: Technical Quality: Fair Contrast 1: Agitated Saline Total Dose (mL): 10 Contrast 2: Total Dose (mL): MEASUREMENTS (Male / Female) Normal Values 2D ECHO LV Diastolic Diameter PLAX 3.6 cm 4.2 - 5.9 / 3.9 - 5.3 cm LV Systolic Diameter PLAX 2.7 cm IVS Diastolic Thickness 1.7 cm 0.6 - 1.0 / 0.6 - 0.9 cm LVPW Diastolic Thickness 1.3 cm 0.6 - 1.0 / 0.6 - 0.9 cm LV Relative Wall Thickness 0.8 RV Internal Dim ED PLAX 3.1 cm LVOT Diameter 1.8 cm LA Volume 70.5 cm??? 18 - 58 / 22 - 52 cm??? LA Volume Index 31.1 cm???/m??? 16 - 28 cm???/m??? M-MODE Aortic Root Diameter MM 3.0 cm LA Systolic Diameter MM 5.1 cm LA Ao Ratio MM 1.7 AV Cusp Separation MM 1.9 cm DOPPLER AV Peak Velocity 175.1 cm/s AV Peak Gradient 12.3 mmHg AV Mean Velocity 130.9 cm/s AV Mean Gradient 7.3 mmHg AV Velocity Time Integral 43.8 cm LVOT Peak Velocity 104.1 cm/s LVOT Peak Gradient 4.3 mmHg LVOT Velocity Time Integral 27.7 cm LVOT Stroke Volume 69.8 cm??? LVOT Stroke Volume Index 33.6 ml/m??? AV Area Cont Eq vti 1.6 cm??? AV Area Cont Eq pk 1.5 cm??? MV Area PHT 4.1 cm??? Mitral E Point Velocity 87.7 cm/s Mitral A Point Velocity 69.7 cm/s Mitral E to A Ratio 1.3 MV Deceleration Time 183.7 ms MV E' Velocity 7.1 cm/s Mitral E to MV E' Ratio 12.4 TR Peak Velocity 282.1 cm/s TR Peak Gradient 31.8 mmHg Right Ventricular Systolic Press 44.4 mmHg FINDINGS Left Ventricle Moderately increased left ventricular wall thickness. Left ventricular cavity size normal. Normal left ventricular systolic function with no obvious regional wall motion abnormalities. Left ventricular ejection fraction is estimated at 55 %. Right Ventricle Normal right ventricular size and function. Mild pulmonary hypertension. Right Atrium Normal right atrial size. Negative agitated saline bubble study for right to left shunt. Left Atrium Mildly increased left atrial volume. Mildly increased left atrial area. Mitral Valve Structurally normal mitral valve. Trace to mild mitral regurgitation. Aortic Valve No aortic valve stenosis or regurgitation. Tricuspid Valve Structurally normal tricuspid valve. [id number] tricuspid regurgitation. Pulmonic Valve Structurally normal pulmonic valve. Pericardium No pericardial effusion. Aorta Normal size aortic root and proximal ascending aorta. CONCLUSIONS Normal LV systolic function [id number] tricuspid regurgitation Previewed by: Dr. Brayd Marie MD (Electronically Signed) Final Date: 12 May 2023 15:57
[2023-05-12] MEDS ORDERED: amLODIPine 5 MG TAB PO STA (17:25)
--- NOTE | 2023-05-12 17:51 | P.PN ---
Subjective Progress Note Date: 05/12/23 Patient was seen for a follow-up Patient just woke up about 10 minutes ago. Patient mentioned that she has not been taking her Lipitor for last 30 days. Objective - Vital Signs Vital signs: Vital Signs Temp 97.8 F 05/12/23 07:00 Pulse 64 05/12/23 07:00 Resp 12 05/12/23 07:00 BP 157/66 05/12/23 07:00 Pulse Ox 97 05/12/23 07:00 FiO2 Intake & Output 05/11/23 05/12/23 05/12/23 18:59 06:59 18:59 Intake Total 298 100 Output Total 50 Balance 248 100 Intake: Oral 298 100 Output: Post Void Residual 50 Other: Voiding Method Toilet Toilet # Voids 4 7 # Bowel Movements 2 - Exam Mental status, speech and language functions are normal. Patient can name and repeat very well. Cranial nerves are normal. On muscle strength testing, there is no pronator drift and the strength is normal in arms and legs. No ataxia. Sensory to touch is equal with no neglect. - Labs CBC & Chem 7: 05/12/23 04:37 05/12/23 04:37 Labs: Abnormal Lab Results - Last 24 Hours (Table) 05/11/23 05/12/23 05/12/23 Range/Units 10:28 04:37 04:37 Hgb 11.7 L (12.0-15.0) g/dL MCHC 31.3 L (32.0-37.0) g/dL Est GFR (CKD-EPI) 43 L (>=60) Hemoglobin A1c 6.1 H (<=6.0) % Assessment and Plan Assessment: * Acute ischemic stroke, multifocal, small size involving left hemispheric region. Patient has presented with episode of altered mental status, agitation, confusion, not oriented, unclear etiology. Patient believes she is back to normal, although patient's daughters believes that she is still not back to 100% normal. There were no associated focal neurological symptoms. * Hypertension, uncontrolled * Hyperlipidemia * Obesity * Impacted cerumen, right EAC. * X tobacco use Plan: * MRI of the brain without contrast revealed acute/subacute CVA with scattered microinfarcts involving the left temporal and left frontal lobe. I personally reviewed MRI agree with the findings. Also reviewed MRI with the patient's family on the computer. * MRA of the head, normal, no evidence of cerebral aneurysm or intracranial stenosis/occlusion. * 2-D echo with bubble study revealed moderately increased left ventricular wall thickness, normal left ventricular cavity size. EF is 55%, with no obvious regional wall motion abnormalities. Left atrial size mildly increased. No [id number] shunt noted with bubble study. Mild to moderate TR. * Carotid Doppler revealed less than 50% stenosis in either ICA. Antegrade flow in both vertebral arteries. * EEG was performed, which is normal, with no focal slowing or epileptiform activity. * Fasting a.m. lipid panel with cholesterol 135, LDL 58, HDL, 60, triglycerides 85. Continue Lipitor 40 mg daily. Patient has been off Lipitor for 1 month, due to lack of refills. * Hemoglobin A1c 6.1. Recommend healthy lifestyles, dietary modification. * B12 413, folate 12.2 * Optimize control of blood pressure. * Patient was not taking any antiplatelet medication at home. Patient was given a loading dose of aspirin 324 mg 1 dose and then started on aspirin 81 mg daily. Patient to be placed on DAPT with Plavix 75 mg daily for 21 days and aspirin. After 21 days, patient will stay on aspirin 81 mg daily indefinitely. * Neuro checks. * Telemetry monitoring rule out any arrhythmia * Patient has significant hearing loss right ear. Patient has impacted wax right EAC. Patient started on Debrox eardrops. May need flushing of the wax outpatient. * DVT prophylaxis: Heparin 5000 units subcu every 8 hours * Neurologically clear for discharge, if cleared by PT, OT, speech therapy. Discussed with primary team.
[2023-05-13 01:26] VITALS: RESP 16
[2023-05-13] MEDS: LEVOTHYROXINE 112 MCG TAB PO SCH (05:30)
[2023-05-13] MEDS: HEPARIN SODIUM,PORCINE 5,000 UNIT/ML 1 ML VIAL SQ SCH (08:57)
[2023-05-13] MEDS: LOSARTAN-HCTZ 50-12.5 MG 1 EACH TAB PO SCH (08:58)
[2023-05-13] MEDS: amLODIPine 5 MG TAB PO SCH (08:58)
[2023-05-13] MEDS: ASPIRIN 81 MG PO SCH (08:58)
[2023-05-13] MEDS: CLOPIDOGREL 75 MG TAB PO SCH (08:58)
[2023-05-13] MEDS: CARBAMIDE PEROXIDE 6.5% DROPS 15 ML BTL RIGHT EAR SCH (08:58)
[2023-05-13] MEDS: ATORVASTATIN 40 MG TAB PO SCH (08:58)
[2023-05-13 09:26] LABS: HCT 39.1 % (34.0-46.0); HGB 12.3 gm/dL (11.4-16.0); Hypochromasia Slight; MCH 27.9 pg (25.0-35.0); MCHC 31.5 g/dL (31.0-37.0); MCV 88.7 fL (80.0-100.0); Mean Platelet Volume 8.3; Platelet Count 265 k/uL (150-450); RDW 13.5 % (11.5-15.5); WBC 8.9 k/uL (3.8-10.6)
[2023-05-13 09:28] VITALS: TEMP 97
[2023-05-13 09:39] LABS: African American GFR (CKD) 50 (>60 ml/min/1.73 sqM); Anion Gap 11 mmol/L; Blood Urea Nitrogen 18 mg/dL (7-17); Calcium 9.5 mg/dL (8.4-10.2); Carbon Dioxide 24 mmol/L (22-30); Chloride 104 mmol/L (98-107); Glucose 141 mg/dL (74-99); Non-African American GFR(CKD) 43 (>60 ml/min/1.73 sqM); Potassium 4.1 mmol/L (3.5-5.1); Sodium 139 mmol/L (137-145)
[2023-05-13 12:51] VITALS: BP 171/73; PULSE 61
--- NOTE | 2023-05-13 13:30 | P.DS ---
Providers Date of admission: 05/12/23 13:00 Expected date of discharge: 05/13/23 Attending physician: Ellen Rodriges Consults: 05/10/23 21:49 Consult Physician Routine Consulting Provider: Ranjeet Mcrae Consult Reason/Comments: presyncope vs possible seizure Do you want consulting provider notified?: Yes, Notify in am Primary care physician: Jostin [place] Hospital Course: * 78-year-old patient with past medical history significant for clinical obstructive sleep apnea, morbid obesity, hypothyroid, hypertension, hyperlipidemia presented to the emergency department with complains of confusion, headache. Patient was in normal state of health yesterday prior to coming in when after taking shallow patient started having frontal headache this was associated with episode of confusion. Patient upon presentation denied paresthesia, fever, chills, chest pain, abdominal pain, palpitations. By the time of presentation in ER patient was doing well however but admitted for further evaluation * Workup obtained in ER included EKG which showed sinus bradycardia, chest x-ray negative for acute cardiac panel process, CT head negative for acute intracranial hemorrhage or mass effect * Blood work in ER included CBC which was essentially normal serum chemistry showed sodium 1:30 at BU and 15 creatinine 1.22 * Urinalysis showed cloudy urine * Patient was given IV fluids and neurology consulted for further evaluation, patient was noted to have significant hypertension home medications reviewed and reconciled * 05/12/2023: Patient seen and evaluated bedside, patient is awake and alert, kj le denies of any focal deficit, patient does complain of right ear congestion will start on Debrox eardrops, MRI brain reviewed concern for acute/subacute CVA, neurology following continue patient on aspirin and Plavix, echocardiogram ordered and pending at this time * 05/13/2023: Patient seen and evaluated bedside, patient was cleared for discharge by cardiology, MRI brain findings were discussed with patient. Continue patient on aspirin and Plavix, echocardiogram completed as well negative for intracardiac thrombus,. Outpatient follow-up with cardiology recommended, recommendations and discharge instructions provided REVIEW OF SYSTEMS: Confusion, headache RESOLVED CONSTITUTIONAL: No fever, no malaise, no fatigue. HEENT: No recent visual problems or hearing problems. Denied any sore throat. CARDIOVASCULAR: No chest pain, orthopnea, PND, no palpitations, no syncope. PULMONARY: No shortness of breath, no cough, no hemoptysis. GASTROINTESTINAL: No diarrhea, no nausea, no vomiting, no abdominal pain. NEUROLOGICAL: No headaches, no weakness, no numbness. HEMATOLOGICAL: Denies any bleeding or petechiae. GENITOURINARY: Denies any burning micturition, frequency, or urgency. MUSCULOSKELETAL/RHEUMATOLOGICAL: Denies any joint pain, swelling, or any muscle pain. ENDOCRINE: Denies any polyuria or polydipsia. PHYSICAL EXAMINATION: GENERAL: The patient is alert and oriented x3, not in any acute distress. HEENT: Pupils are round and equally reacting to light. EOMI. CARDIOVASCULAR: S1 and S2 present. No murmurs, rubs, or gallops. PULMONARY: Chest is clear to auscultation, no wheezing or crackles. ABDOMEN: Soft, nontender, nondistended, normoactive bowel sounds. No palpable organomegaly. MUSCULOSKELETAL: No joint swelling or deformity. EXTREMITIES: No cyanosis, clubbing, or pedal edema. NEUROLOGICAL: Gross neurological examination did not reveal any focal deficits. Assessment: Assessment and plan Acute encephalopathy secondary to CVA, acute/subacute microinfarct left temporal/ left frontal lobe Hypertensive urgency with intractable headache History of hypertension Hypothyroid Acute kidney injury improved * In regards to acute encephalopathy, subacute/acute CVA >> while inpatient neurochecks ordered every 4 hours, CT head obtained negative intracranial processes neurology consulted EEG ordered, echocardiogram preserved ejection fraction, negative for intracardiac thrombus, MRI brain and MRA angiogram head and neck and carotid ultrasound reviewed, continue aspirin, Plavix x 21 days then Aspirin only , Lipitor, neurology outpatient follow-up * In regards to hypertensive urgency continue home medication including losartan, hydrochlorothiazide, amlodipine prescribed * In regards to hypothyroid continue Synthyroid * In regards to acute kidney injury proved, creatinine close to baseline * In regards to right earwax, Debrox drops given Patient Condition at Discharge: Stable Plan - Discharge Summary New Discharge Prescriptions: New Carbamide Peroxide [Debrox Otic] 6 drops RIGHT EAR BID 5 Days #5 ml amLODIPine [Norvasc] 5 mg PO DAILY 30 Days #30 tab Clopidogrel [Plavix] 75 mg PO DAILY 19 Days #19 tab Aspirin 81 mg PO DAILY 30 Days #30 tab Continue Omeprazole 20 mg PO DAILY PRN PRN Reason: Gi Upset Naproxen Sodium [Aleve] 220 mg PO DAILY PRN PRN Reason: Pain Atorvastatin [Lipitor] 40 mg PO DAILY Levothyroxine Sodium [Synthroid] 112 mcg PO DAILY Furosemide [Lasix] 40 mg PO DAILY PRN PRN Reason: Edema Losartan/Hydrochlorothiazide [Hyzaar 100-25 Tablet] 1 tab PO DAILY Discharge Medication List Atorvastatin [Lipitor] 40 mg PO DAILY 08/27/20 [History] Furosemide [Lasix] 40 mg PO DAILY PRN 08/27/20 [History] Levothyroxine Sodium [Synthroid] 112 mcg PO DAILY 08/27/20 [History] Naproxen Sodium [Aleve] 220 mg PO DAILY PRN 08/27/20 [History] Omeprazole 20 mg PO DAILY PRN 08/27/20 [History] Losartan/Hydrochlorothiazide [Hyzaar 100-25 Tablet] 1 tab PO DAILY 05/10/23 [History] Aspirin 81 mg PO DAILY 30 Days #30 tab 05/13/23 [Rx] Carbamide Peroxide [Debrox Otic] 6 drops RIGHT EAR BID 5 Days #5 ml 05/13/23 [Rx] Clopidogrel [Plavix] 75 mg PO DAILY 19 Days #19 tab 05/13/23 [Rx] amLODIPine [Norvasc] 5 mg PO DAILY 30 Days #30 tab 05/13/23 [Rx] Follow up Appointment(s)/Referral(s): Jostin King DO [Primary Care Provider] - 1-2 days Ranjeet King MD [STAFF PHYSICIAN] - 1 Week Discharge Disposition: HOME WITH HOME HEALTH SERVICES
== END 2023-05-13 14:25 | disposition home health service (06) | DRG 65 ==
LOC: EC 13:38 → 6NMEDSUR 16:49 → OBSVTOIN 05-12 13:00 → 3SCARD 05-12 16:55
PROVIDERS: ADMIT Hospitalist; ATTEND Hospitalist
DX: I63.89 Other cerebral infarction (principal); G93.49 Other encephalopathy; N17.9 Acute kidney failure, unspecified; Z68.41 Body mass index [BMI] 40.0-44.9, adult; E86.0 Dehydration; E66.01 Morbid (severe) obesity due to excess calories; I16.0 Hypertensive urgency; I10 Essential (primary) hypertension; E03.9 Hypothyroidism, unspecified; G43.909 Migraine, unspecified, not intractable, without status migrainosus; E78.5 Hyperlipidemia, unspecified; H61.21 Impacted cerumen, right ear; G47.33 Obstructive sleep apnea (adult) (pediatric); Z96.652 Presence of left artificial knee joint; Z28.310 Unvaccinated for COVID-19; Z79.890 Hormone replacement therapy; Z79.899 Other long term (current) drug therapy; Z79.82 Long term (current) use of aspirin; Z88.2 Allergy status to sulfonamides; Z88.5 Allergy status to narcotic agent; Z87.891 Personal history of nicotine dependence
CPT/HCPCS: 36415; 70110; 70450; 70544; 70551; 71046; 80048; 80053; 80061; 81001; 82550; 82607; 82746; 83036; 84484; 85025; 85027; 85610; 85730; 93005; 93306; 93880; 94760; 95816; 96360; 96361; 99285

== ENCOUNTER 2023-09-15 11:18 | Observation (INO) | payer MEDICARE, BC ==
[2023-09-15 12:23] LABS: Basophils # (A) 0.1 k/uL (0-0.2); Basophils % (A) 1 %; Eosinophils # (A) 0.2 k/uL (0-0.7); Eosinophils % (A) 1 %; HCT 40.8 % (34.0-46.0); HGB 12.5 gm/dL (11.4-16.0); Lymphocytes # (A) 2.6 k/uL (1.0-4.8); Lymphocytes % (A) 17 %; MCH 27.1 pg (25.0-35.0); MCHC 30.7 g/dL (31.0-37.0); MCV 88.4 fL (80.0-100.0); Monocytes # (A) 0.7 k/uL (0-1.0); Monocytes % (A) 4 %; Neutrophils # (A) 11.4 k/uL (1.3-7.7); Neutrophils % (A) 75 %; Platelet Count 320 k/uL (150-450); RBC 4.61 m/uL (3.80-5.40); RDW 14.3 % (11.5-15.5); WBC 15.2 k/uL (3.8-10.6)
[2023-09-15 12:38] LABS: INR 0.9 (<1.2); Partial Thromboplastin Time 24.8 sec (22.0-30.0); Prothrombin Time 10.1 sec (10.0-12.5)
--- NOTE | 2023-09-15 12:40 | ED ---
General Adult HPI - General Chief complaint: Abdominal Pain Stated complaint: Abd Pain/SOB Time Seen by Provider: 09/15/23 11:44 Source: patient, RN notes reviewed Mode of arrival: ambulatory Limitations: no limitations - History of Present Illness Initial comments: 78-year-old female presents to the emergency department for evaluation of left lateral chest wall pain. She states that this started 2 days ago. It is worse with inspiration. She notes that it is resolved when she applies pressure to the area. She does report some difficulty breathing related to the pain. She denies chest pain, recent fevers, cough, congestion. Denies nausea, vomiting, diaphoresis. - Related Data Home Medications Medication Instructions Recorded Confirmed Atorvastatin [Lipitor] 40 mg PO DAILY 08/27/20 09/15/23 Furosemide [Lasix] 40 mg PO DAILY 08/27/20 09/15/23 Levothyroxine Sodium [Synthroid] 112 mcg PO DAILY 08/27/20 09/15/23 Omeprazole 20 mg PO DAILY PRN 08/27/20 09/15/23 Losartan/Hydrochlorothiazide 1 tab PO DAILY 05/10/23 09/15/23 [Hyzaar 100-25 Tablet] Aspirin EC [Ecotrin Low Dose] 162 mg PO W/BRKFST 09/15/23 09/15/23 Cholecalciferol [Vitamin D3 (25 25 mcg PO DAILY 09/15/23 09/15/23 Mcg = 1000 Iu)] Allergies Allergy/AdvReac Type Severity Reaction Status Date / Time Sulfa (Sulfonamide Allergy Itching Verified 09/15/23 13:18 Antibiotics) meperidine [From Demerol] AdvReac Nausea & Verified 09/15/23 13:18 Vomiting Review of Systems ROS Statement: Those systems with pertinent positive or pertinent negative responses have been documented in the HPI. ROS Other: All systems not noted in ROS Statement are negative. Past Medical History Past Medical History: GERD/Reflux, Hyperlipidemia, Hypertension, Osteoarthritis (OA), Sleep Apnea/CPAP/BIPAP, Thyroid Disorder Additional Past Medical History / Comment(s): irregular heart rate. has cpap History of Any Multi-Drug Resistant Organisms: None Reported Past Surgical History: Orthopedic Surgery Additional Past Surgical History / Comment(s): lt knee replacement Past Anesthesia/Blood Transfusion Reactions: Family History of Problems w/ Anesthesia, Motion Sickness, Postoperative Nausea & Vomiting (PONV) Additional Past Anesthesia/Blood Transfusion Reaction / Comment(s): daughter PONV Past Psychological History: No Psychological Hx Reported Smoking Status: Former smoker Past Alcohol Use History: None Reported Past Drug Use History: None Reported General Exam Limitations: no limitations General appearance: alert, in no apparent distress Head exam: Present: atraumatic, normocephalic, normal inspection Eye exam: Present: normal appearance, PERRL, EOMI. Absent: scleral icterus, conjunctival injection, periorbital swelling ENT exam: Present: normal exam, mucous membranes moist Respiratory exam: Present: normal lung sounds bilaterally, chest wall tenderness (Left lateral). Absent: respiratory distress, wheezes, rales, rhonchi, stridor Cardiovascular Exam: Present: normal rhythm, bradycardia, normal heart sounds. Absent: systolic murmur, diastolic murmur, rubs, gallop, clicks GI/Abdominal exam: Present: soft, normal bowel sounds. Absent: distended, tenderness, guarding, rebound, rigid Extremities exam: Present: normal inspection, full ROM, normal capillary refill. Absent: tenderness, pedal edema, joint swelling, calf tenderness Back exam: Present: normal inspection Neurological exam: Present: alert, oriented X3 Psychiatric exam: Present: normal affect, normal mood Skin exam: Present: warm, dry, intact, normal color. Absent: rash Course Vital Signs 09/15/23 09/15/23 11:22 13:20 Temperature 97.9 F Pulse Rate 70 59 L Respiratory 18 18 Rate Blood Pressure 141/80 178/88 O2 Sat by Pulse 96 97 Oximetry Medical Decision Making - Medical Decision Making Was pt. sent in by a medical professional or institution (, PA, KAYAK MAKER, urgent care, hospital, or retirement...) When possible be specific @ -No Did you speak to anyone other than the patient for history (EMS, parent, family, police, friend...)? What history was obtained from this source @ -No Did you review nursing and triage notes (agree or disagree)? Why? @ -I reviewed and agree with nursing and triage notes Were old charts reviewed (outside hosp., previous admission, EMS record, old EKG, old radiological studies, urgent care reports/EKG's, retirement records)? Report findings @ -No old charts were reviewed Differential Diagnosis (chest pain, altered mental status, abdominal pain women, abdominal pain men, vaginal bleeding, weakness, fever, dyspnea, syncope, headache, dizziness, GI bleed, back pain, seizure, CVA, palpatations, mental health, musculoskeletal)? @ -Differential Chest Pain: Stable Angina, Unstable Angina, STEMI, NSTEMI Aortic Dissection, Pneumothorax, Musculoskeletal, Esophageal Spasm GERD, Cholecystitis, Pancreatitis, Zoster, this is not meant to be an all-inclusive list. EKG interpreted by me (3pts min.). @ -EKG at 1216 shows sinus bradycardia rate 55, AR 172, QRS 97, QTQTc [id number] X-rays interpreted by me (1pt min.). @ -Chest x-ray obtained shows small left lower lobe pneumonia and pleural effusion CT interpreted by me (1pt min.). @ -None done U/S interpreted by me (1pt. min.). @ -None done What testing was considered but not performed or refused? (CT, X-rays, U/S, labs)? Why? @ -None What meds were considered but not given or refused? Why? @ -None Did you discuss the management of the patient with other professionals (jatin rubi i.e. , PA, KAYAK MAKER, lab, RT, psych nurse, executive secretary social welfare, immigration lawyer, teacher, ship's officer, vocational case manager)? Give summary @ -Discussed with Dr. Godinez with [facility] who is accepting of the admission, reque sting pulmonology consult Was smoking cessation discussed for >3mins.? @ -No Was critical care preformed (if so, how long)? @ -No Were there social determinants of health that impacted care today? How? (Homelessness, low income, unemployed, alcoholism, drug addiction, transportation, low edu. Level, literacy, decrease access to med. care, shelter, rehab)? @ -No Was there de-escalation of care discussed even if they declined (Discuss DNR or withdrawal of care, Hospice)? DNR status @ -No What co-morbidities impacted this encounter? (DM, HTN, Smoking, COPD, CAD, Cancer, CVA, ARF, Chemo, Hep., AIDS, mental health diagnosis, sleep apnea, morbid obesity)? @ -None Was patient admitted / discharged? Hospital course, mention meds given and route, prescriptions, significant lab abnormalities, going to OR and other pertinent info. @ -Admitted. Patient presented to the emergency department for evaluation of left lateral pleuritic chest pain x 2 days. Laboratory studies obtained. Patient has mild leukocytosis 15.2. Creatinine 1.7, BUN 27, troponin 0.013. Chest x-ray shows a small left lower lobe pneumonia with pleural effusion. VSS. Based on patient age, elevated Cr, pleural effusion, and leukocytosis, patient will be observation for IV abx. Case discussed with Dr. Godinez covering for Dr. King who is accepting of the admission. Case discussed with Dr. Kaplan. Patient stable at time of admission. Undiagnosed new problem with uncertain prognosis? @ -No Drug Therapy requiring intensive monitoring for toxicity (Heparin, Nitro, Insulin, Cardizem)? @ -No Were any procedures done? @ -No Diagnosis/symptom? @ -Pneumonia, pleural effusion Acute, or Chronic, or Acute on Chronic? @ -Acute Uncomplicated (without systemic symptoms) or Complicated (systemic symptoms)? @ -Uncomplicated Side effects of treatment? @ -No Exacerbation, Progression, or Severe Exacerbation? @ -No Poses a threat to life or bodily function? How? (Chest pain, USA, AR, pneumonia, PE, COPD, DKA, ARF, appy, cholecystitis, CVA, Diverticulitis, Homicidal, Suicidal, threat to staff... and all critical care pts) @ -No - Lab Data Result diagrams: 09/15/23 12:12 09/15/23 12:12 Lab Results 09/15/23 09/15/23 09/15/23 Range/Units 12:12 12:12 12:12 WBC 15.2 H (3.8-10.6) k/uL RBC 4.61 (3.80-5.40) m/uL Hgb 12.5 (11.4-16.0) gm/dL Hct 40.8 (34.0-46.0) % MCV 88.4 (80.0-100.0) fL MCH 27.1 (25.0-35.0) pg MCHC 30.7 L (31.0-37.0) g/dL RDW 14.3 (11.5-15.5) % Plt Count 320 (150-450) k/uL MPV 8.0 Neutrophils % 75 % Lymphocytes % 17 % Monocytes % 4 % Eosinophils % 1 % Basophils % 1 % Neutrophils # 11.4 H (1.3-7.7) k/uL Lymphocytes # 2.6 (1.0-4.8) k/uL Monocytes # 0.7 (0-1.0) k/uL Eosinophils # 0.2 (0-0.7) k/uL Basophils # 0.1 (0-0.2) k/uL PT 10.1 (10.0-12.5) sec INR 0.9 (<1.2) APTT 24.8 (22.0-30.0) sec Sodium 137 (137-145) mmol/L Potassium 4.3 (3.5-5.1) mmol/L Chloride 107 (98-107) mmol/L Carbon Dioxide 22 (22-30) mmol/L Anion Gap 8 mmol/L BUN 27 H (7-17) mg/dL Creatinine 1.70 H (0.52-1.04) mg/dL Est GFR (CKD-EPI)AfAm 33 (>60 ml/min/1.73 sqM) Est GFR (CKD-EPI)NonAf 29 (>60 ml/min/1.73 sqM) Glucose 112 H (74-99) mg/dL Calcium 9.3 (8.4-10.2) mg/dL Magnesium 2.0 (1.6-2.3) mg/dL Total Bilirubin 0.7 (0.2-1.3) mg/dL AST 24 (14-36) U/L ALT 15 (4-34) U/L Alkaline Phosphatase 113 (38-126) U/L Troponin I (0.000-0.034) ng/mL Total Protein 7.5 (6.3-8.2) g/dL Albumin 3.9 (3.5-5.0) g/dL 09/15/23 Range/Units 12:12 WBC (3.8-10.6) k/uL RBC (3.80-5.40) m/uL Hgb (11.4-16.0) gm/dL Hct (34.0-46.0) % MCV (80.0-100.0) fL MCH (25.0-35.0) pg MCHC (31.0-37.0) g/dL RDW (11.5-15.5) % Plt Count (150-450) k/uL MPV Neutrophils % % Lymphocytes % % Monocytes % % Eosinophils % % Basophils % % Neutrophils # (1.3-7.7) k/uL Lymphocytes # (1.0-4.8) k/uL Monocytes # (0-1.0) k/uL Eosinophils # (0-0.7) k/uL Basophils # (0-0.2) k/uL PT (10.0-12.5) sec INR (<1.2) APTT (22.0-30.0) sec Sodium (137-145) mmol/L Potassium (3.5-5.1) mmol/L Chloride (98-107) mmol/L Carbon Dioxide (22-30) mmol/L Anion Gap mmol/L BUN (7-17) mg/dL Creatinine (0.52-1.04) mg/dL Est GFR (CKD-EPI)AfAm (>60 ml/min/1.73 sqM) Est GFR (CKD-EPI)NonAf (>60 ml/min/1.73 sqM) Glucose (74-99) mg/dL Calcium (8.4-10.2) mg/dL Magnesium (1.6-2.3) mg/dL Total Bilirubin (0.2-1.3) mg/dL AST (14-36) U/L ALT (4-34) U/L Alkaline Phosphatase (38-126) U/L Troponin I 0.013 (0.000-0.034) ng/mL Total Protein (6.3-8.2) g/dL Albumin (3.5-5.0) g/dL Disposition Clinical Impression: Pneumonia, Pleural effusion Disposition: ADMITTED IP TO THIS HOSP Condition: Stable Is patient prescribed a controlled substance at d/c from ED?: No
--- NOTE | 2023-09-15 12:47 | XR ---
EXAMINATION TYPE: XR chest 2V DATE OF EXAM: 09/15/2023 COMPARISON: 05/10/2023 TECHNIQUE: PA and lateral views submitted. HISTORY: Pain FINDINGS: Mild emphysematous changes. There is blunting of the left costophrenic angle. Heart size normal and n o overt failure. Osseous structures demonstrate hypertrophic and degenerative changes of the spine. N o sizable pneumothorax. Diffuse osteopenia. There is AC joint arthropathy. IMPRESSION: 1. Small left lower lobe infiltrate and pleural effusion.
[2023-09-15 12:56] LABS: Albumin 3.9 g/dL (3.5-5.0)
[2023-09-15 12:57] LABS: ALT 15 U/L (4-34); AST 24 U/L (14-36); African American GFR (CKD) 33 (>60 ml/min/1.73 sqM); Alkaline Phosphatase 113 U/L (38-126); Anion Gap 8 mmol/L; Blood Urea Nitrogen 27 mg/dL (7-17); Calcium 9.3 mg/dL (8.4-10.2); Carbon Dioxide 22 mmol/L (22-30); Chloride 107 mmol/L (98-107); Glucose 112 mg/dL (74-99); Non-African American GFR(CKD) 29 (>60 ml/min/1.73 sqM); Potassium 4.3 mmol/L (3.5-5.1); Sodium 137 mmol/L (137-145); Total Bilirubin 0.7 mg/dL (0.2-1.3); Total Protein 7.5 g/dL (6.3-8.2)
[2023-09-15] MEDS ORDERED: PNEUMONIA PROTOCOL UTILIZED 1 EACH MISC PO PRN (13:50)
[2023-09-15] MEDS: AZITHROMYCIN 500 MG in SODIUM CHLORIDE 0.9% 250 ML IVPB STA (16:29)
[2023-09-15] MEDS ORDERED: PANTOPRAZOLE 40 MG TABLET PO PRN (18:36)
[2023-09-15] MEDS: SODIUM CHLORIDE 0.9% 1,000 ML IV SCH (20:15)
[2023-09-16] MEDS: ASPIRIN 81 MG PO SCH (06:12)
[2023-09-16] MEDS: LEVOTHYROXINE 112 MCG TAB PO SCH (06:12)
[2023-09-16] MEDS: ATORVASTATIN 40 MG TAB PO SCH (10:18)
[2023-09-16] MEDS: CHOLECALCIFEROL 25 MCG (1000 IU) TABLET PO SCH (10:18)
[2023-09-16] MEDS: AZITHROMYCIN 500 MG TAB PO SCH (11:51)
--- NOTE | 2023-09-16 12:18 | P.CNPUL ---
History of Present Illness Consult date: 09/16/23 Requesting physician: Javid Godinez Reason for consult: chest pain Chief complaint: Left-sided upper quadrant, chest pain History of present illness: This is a very pleasant 78-year-old female patient with a known history of hypertension, hyperlipidemia, hypothyroidism, former smoker. She presented here to the emergency room yesterday with complaints of left sided chest wall, left upper quadrant discomfort. She states that is improved when she pushes on it. She initially had some pain on inspiration. No shortness of breath, cough or congestion. No fever or chills. No trauma. Chest x-ray reveals a very small left lower lobe infiltrate/pleural effusion. White count 15.2. Hemoglobin 12.5. Platelets 320. Sodium 137. Potassium 4.3. Bicarb 22. BUN 27. Creatinine 1.70. Glucose 112. Troponin negative x 1. She is seen today in consultation on the regular medical floor. She is currently sitting up in a chair at the bedside. Awake and alert in no acute distress. Maintaining good O2 saturations in the 90s on room air. She is afebrile. Hemodynamically stable. She was initiated on ceftriaxone and azithromycin. Review of Systems REVIEW OF SYSTEMS: CONSTITUTIONAL: Denies any recent significant weight loss or weight gain. EYES: Denies change in vision. EARS, NOSE, MOUTH, THROAT: Denies headaches, denies sore throat. CARDIOVASCULAR: Denies chest pain, palpitations or syncopal episodes. RESPIRATORY: Denies shortness of breath, cough, congestion or hemoptysis. GASTROINTESTINAL: Denies change in appetite, denies abdominal pain GENITOURINARY: Denies hematuria, denies infections. MUSKULOSKELETAL: Positive for left sided chest wall pain, denies swelling. INTEGUMENTARY: Denies rash, denies eczema. NEUROLOGICAL: Denies recent memory loss, no recent seizure activity. PSYCHIATRIC: Denies anxiety, denies depression. HEMATOLOGIC/LYMPHATIC: Denies anemia, denies enlarged lymph nodes. Past Medical History Past Medical History: GERD/Reflux, Hyperlipidemia, Hypertension, Osteoarthritis (OA), Sleep Apnea/CPAP/BIPAP, Thyroid Disorder Additional Past Medical History / Comment(s): irregular heart rate. has cpap History of Any Multi-Drug Resistant Organisms: None Reported Past Surgical History: Orthopedic Surgery Additional Past Surgical History / Comment(s): lt knee replacement Past Anesthesia/Blood Transfusion Reactions: Family History of Problems w/ Anesthesia, Motion Sickness, Postoperative Nausea & Vomiting (PONV) Additional Past Anesthesia/Blood Transfusion Reaction / Comment(s): daughter PONV Past Psychological History: No Psychological Hx Reported Additional Psychological History / Comment(s): claustrophobic Smoking Status: Former smoker Past Alcohol Use History: None Reported Additional Past Alcohol Use History / Comment(s): smoked 15 years quit 1976 Past Drug Use History: None Reported Medications and Allergies Home Medications Medication Instructions Recorded Confirmed Type Atorvastatin [Lipitor] 40 mg PO DAILY 08/27/20 09/15/23 History Furosemide [Lasix] 40 mg PO DAILY 08/27/20 09/15/23 History Levothyroxine Sodium [Synthroid] 112 mcg PO DAILY 08/27/20 09/15/23 History Omeprazole 20 mg PO DAILY PRN 08/27/20 09/15/23 History Losartan/Hydrochlorothiazide 1 tab PO DAILY 05/10/23 09/15/23 History [Hyzaar 100-25 Tablet] Aspirin EC [Ecotrin Low Dose] 162 mg PO W/BRKFST 09/15/23 09/15/23 History Cholecalciferol [Vitamin D3 (25 25 mcg PO DAILY 09/15/23 09/15/23 History Mcg = 1000 Iu)] Allergies Allergy/AdvReac Type Severity Reaction Status Date / Time Sulfa (Sulfonamide Allergy Itching Verified 09/15/23 13:18 Antibiotics) meperidine [From Demerol] AdvReac Nausea & Verified 09/15/23 13:18 Vomiting Physical Exam Vitals: Vital Signs Temp Pulse Pulse Resp BP BP Pulse Ox 09/16/23 07:00 98.2 F 60 16 156/58 97 09/16/23 02:00 97.6 F 66 16 148/62 99 09/15/23 20:00 98.3 F 69 16 153/71 97 09/15/23 17:52 98.7 F 61 14 187/69 99 09/15/23 16:50 97.6 F 64 16 152/72 99 09/15/23 16:30 97.2 F L 63 18 172/67 97 09/15/23 13:20 59 L 18 178/88 97 Intake and Output 09/15/23 09/16/23 09/16/23 22:59 06:59 14:59 Intake Total 118 Balance 118 Intake: Oral 118 Other: # Voids 2 Weight 108.862 kg GENERAL EXAM: Alert, pleasant 78-year-old female, up in a chair, on room air, comfortable in no apparent distress. HEAD: Normocephalic. EYES: Normal reaction of pupils, equal size. NOSE: Clear with pink turbinates. THROAT: No erythema or exudates. NECK: No masses, no JVD. CHEST: No chest wall deformity. LUNGS: Equal air entry with no crackles, wheeze, rhonchi or dullness. CVS: S1 and S2 normal with no audible murmur, regular rhythm. ABDOMEN: No hepatosplenomegaly, normal bowel sounds, no guarding or rigidity. SPINE: No scoliosis or deformity SKIN: No rashes CENTRAL NERVOUS SYSTEM: No focal deficits, tone is normal in all 4 extremities. EXTREMITIES: There is no peripheral edema. No clubbing, no cyanosis. Peripheral pulses are intact. Results - Laboratory Findings CBC and BMP: 09/15/23 12:12 09/15/23 12:12 PT/INR, D-dimer PT 10.1 sec (10.0-12.5) 09/15/23 12:12 INR 0.9 (<1.2) 09/15/23 12:12 Abnormal lab findings: Abnormal Labs 09/15/23 09/15/23 12:12 12:12 WBC 15.2 H MCHC 30.7 L Neutrophils # 11.4 H BUN 27 H Creatinine 1.70 H Glucose 112 H - Diagnostic Findings Chest x-ray: image reviewed Assessment and Plan Assessment: Atypical left-sided chest wall/upper quadrant pain History of lower extremity edema normally on Lasix however it was stopped 1 month ago Acute on chronic kidney disease,current creatinine 1.7 Hypertension Hyperlipidemia Hypothyroidism Plan: The patient was seen and evaluated Chest x-ray, labs and medications reviewed Check a D-dimer Check a procalcitonin Currently stable and on room air We will continue to follow and make further recommendations based on her clinical status I have personally seen and examined the patient, performed the documentation and the assessment and plan as written. Number of minutes spent on the visit: 20.
--- NOTE | 2023-09-16 17:56 | P.HPIM ---
History of Present Illness H&P Date: 09/15/23 Chief Complaint: Shortness of breath 78-year-old female, history of hypertension, hyperlipidemia, hypothyroidism, sleep apnea, presents to the emergency department for evaluation of left lateral chest wall pain. She states that this started 2 days ago. It is worse with ins piration. She notes that it is resolved when she applies pressure to the area. She does report some difficulty breathing related to the pain. She denies chest pain, recent fevers, cough, congestion. Denies nausea, vomiting, diaphoresis. Chest x-ray reveals a very small left lower lobe infiltrate/pleural effusion. White count 15.2. Hemoglobin 12.5. Platelets 320. Sodium 137. Potassium 4.3. Bicarb 22. BUN 27. Creatinine 1.70. Glucose 112. Troponin negative x 1. --Patient is placed on IV antibiotics in form of ceftriaxone and azithromycin and is being admitted for further treatment Review of Systems REVIEW OF SYSTEMS: CONSTITUTIONAL: No fever, no malaise, no fatigue. HEENT: No recent visual problems or hearing problems. Denied any sore throat. CARDIOVASCULAR: No chest pain, orthopnea, PND, no palpitations, no syncope. PULMONARY: No shortness of breath, no cough, no hemoptysis. GASTROINTESTINAL: No diarrhea, no nausea, no vomiting, no abdominal pain. NEUROLOGICAL: No headaches, no weakness, no numbness. HEMATOLOGICAL: Denies any bleeding or petechiae. GENITOURINARY: Denies any burning micturition, frequency, or urgency. MUSCULOSKELETAL/RHEUMATOLOGICAL: Denies any joint pain, swelling, or any muscle pain. ENDOCRINE: Denies any polyuria or polydipsia. The rest of the 14-point review of systems is negative. Past Medical History Past Medical History: GERD/Reflux, Hyperlipidemia, Hypertension, Osteoarthritis (OA), Sleep Apnea/CPAP/BIPAP, Thyroid Disorder Additional Past Medical History / Comment(s): irregular heart rate. has cpap History of Any Multi-Drug Resistant Organisms: None Reported Past Surgical History: Orthopedic Surgery Additional Past Surgical History / Comment(s): lt knee replacement Past Anesthesia/Blood Transfusion Reactions: Family History of Problems w/ Anesthesia, Motion Sickness, Postoperative Nausea & Vomiting (PONV) Additional Past Anesthesia/Blood Transfusion Reaction / Comment(s): daughter PONV Past Psychological History: No Psychological Hx Reported Smoking Status: Former smoker Past Alcohol Use History: None Reported Past Drug Use History: None Reported Medications and Allergies Home Medications Medication Instructions Recorded Confirmed Type Atorvastatin [Lipitor] 40 mg PO DAILY 08/27/20 09/15/23 History Furosemide [Lasix] 40 mg PO DAILY 08/27/20 09/15/23 History Levothyroxine Sodium [Synthroid] 112 mcg PO DAILY 08/27/20 09/15/23 History Omeprazole 20 mg PO DAILY PRN 08/27/20 09/15/23 History Losartan/Hydrochlorothiazide 1 tab PO DAILY 05/10/23 09/15/23 History [Hyzaar 100-25 Tablet] Aspirin EC [Ecotrin Low Dose] 162 mg PO W/BRKFST 09/15/23 09/15/23 History Cholecalciferol [Vitamin D3 (25 25 mcg PO DAILY 09/15/23 09/15/23 History Mcg = 1000 Iu)] Allergies Allergy/AdvReac Type Severity Reaction Status Date / Time Sulfa (Sulfonamide Allergy Itching Verified 09/15/23 13:18 Antibiotics) meperidine [From Demerol] AdvReac Nausea & Verified 09/15/23 13:18 Vomiting Physical Exam Vitals: Vital Signs Temp Pulse Pulse Resp BP BP Pulse Ox 09/15/23 17:52 98.7 F 61 14 187/69 99 09/15/23 16:30 97.2 F L 63 18 172/67 97 09/15/23 13:20 59 L 18 178/88 97 09/15/23 11:22 97.9 F 70 18 141/80 96 Intake and Output 09/15/23 09/15/23 09/15/23 06:59 14:59 22:59 Other: Weight 108.862 kg General appearance: alert, in no apparent distress Head exam: Present: atraumatic, normocephalic, normal inspection Eye exam: Present: normal appearance, PERRL, EOMI. Absent: scleral icterus, conjunctival injection, periorbital swelling ENT exam: Present: normal exam, mucous membranes moist Respiratory exam: Present: normal lung sounds bilaterally, chest wall tenderness (Left lateral). Absent: respiratory distress, wheezes, rales, rhonchi, stridor Cardiovascular Exam: Present: normal rhythm, bradycardia, normal heart sounds. Absent: systolic murmur, diastolic murmur, rubs, gallop, clicks GI/Abdominal exam: Present: soft, normal bowel sounds. Absent: distended, tenderness, guarding, rebound, rigid Extremities exam: Present: normal inspection, full ROM, normal capillary refill. Absent: tenderness, pedal edema, joint swelling, calf tenderness Back exam: Present: normal inspection Neurological exam: Present: alert, oriented X3 Psychiatric exam: Present: normal affect, normal mood Skin exam: Present: warm, dry, intact, normal color. Absent: rash Results CBC & Chem 7: 09/15/23 12:12 09/15/23 12:12 Labs: Abnormal Lab Results - Last 24 Hours (Table) 09/15/23 09/15/23 Range/Units 12:12 12:12 WBC 15.2 H (3.8-10.6) k/uL MCHC 30.7 L (31.0-37.0) g/dL Neutrophils # 11.4 H (1.3-7.7) k/uL BUN 27 H (7-17) mg/dL Creatinine 1.70 H (0.52-1.04) mg/dL Glucose 112 H (74-99) mg/dL Assessment and Plan Assessment: 1. Pneumonia/pleuritic chest pain --Patient has been placed on IV Rocephin 1 g daily along with azithromycin; will add DuoNeb nebulizer treatments 4 times daily and as needed -Monitor CBC, CRP and procalcitonin; blood cultures and sputum cultures ordered and pending -Consult pulmonary 2. Acute renal injury/dehydration; BUNs/creatinine elevated at 27/1.7; patient has been placed on IV fluid; monitor strict JAVY's, daily weights, renal function electrolytes; avoid nephrotoxins and hypotension 3. Hyperlipidemia; Lipitor 40 mg daily 4. Hypothyroidism; levothyroxine 112 mcg daily 5. Hypertension; patient takes Hyzaar 100-25 mg 1 daily which has been placed on hold given acute renal injury; we will resume therapy once renal function improves 6. Vitamin D deficiency; vitamin D3 25 mcg daily 7. Gastroesophageal reflux disease; Protonix 20 mg daily DVT prophylaxis; SCDs CODE STATUS; full code
--- NOTE | 2023-09-16 17:57 | P.PN ---
Subjective Progress Note Date: 09/16/23 78-year-old female, history of hypertension, hyperlipidemia, hypothyroidism, sleep apnea, presents to the emergency department for evaluation of left lateral chest wall pain. She states that this started 2 days ago. It is worse with inspiration. She notes that it is resolved when she applies pressure to the area. She does report some difficulty breathing related to the pain. She denies chest pain, recent fevers, cough, congestion. Denies nausea, vomiting, diaphoresis. Chest x-ray reveals a very small left lower lobe infiltrate/pleural effusion. White count 15.2. Hemoglobin 12.5. Platelets 320. Sodium 137. Potassium 4.3. Bicarb 22. BUN 27. Creatinine 1.70. Glucose 112. Troponin negative x 1. --Patient is placed on IV antibiotics in form of ceftriaxone and azithromycin and is being admitted for further treatment Objective - Vital Signs Vital signs: Vital Signs Temp 98.2 F 09/16/23 07:00 Pulse 60 09/16/23 07:00 Resp 16 09/16/23 07:00 BP 156/58 09/16/23 07:00 Pulse Ox 97 09/16/23 07:00 FiO2 Intake & Output 09/15/23 09/16/23 09/16/23 18:59 06:59 18:59 Intake Total 118 Balance 118 Weight 108.862 kg 108.862 kg Intake: Oral 118 Other: # Voids 2 - Exam General appearance: alert, in no apparent distress Head exam: Present: atraumatic, normocephalic, normal inspection Eye exam: Present: normal appearance, PERRL, EOMI. Absent: scleral icterus, conjunctival injection, periorbital swelling ENT exam: Present: normal exam, mucous membranes moist Respiratory exam: Present: normal lung sounds bilaterally, chest wall tenderness (Left lateral). Absent: respiratory distress, wheezes, rales, rhonchi, stridor Cardiovascular Exam: Present: normal rhythm, bradycardia, normal heart sounds. Absent: systolic murmur, diastolic murmur, rubs, gallop, clicks GI/Abdominal exam: Present: soft, normal bowel sounds. Absent: distended, tenderness, guarding, rebound, rigid Extremities exam: Present: normal inspection, full ROM, normal capillary refill. Absent: tenderness, pedal edema, joint swelling, calf tenderness Back exam: Present: normal inspection Neurological exam: Present: alert, oriented X3 Psychiatric exam: Present: normal affect, normal mood Skin exam: Present: warm, dry, intact, normal color. Absent: rash - Labs CBC & Chem 7: 09/15/23 12:12 09/15/23 12:12 Assessment and Plan Assessment: 1. Pneumonia/pleuritic chest pain --Patient has been placed on IV Rocephin 1 g daily along with azithromycin; will add DuoNeb nebulizer treatments 4 times daily and as needed -Monitor CBC, CRP and procalcitonin; blood cultures and sputum cultures ordered and pending -Consult pulmonary 2. Acute renal injury/dehydration; BUNs/creatinine elevated at 27/1.7; patient has been placed on IV fluid; monitor strict JAVY's, daily weights, renal function electrolytes; avoid nephrotoxins and hypotension 3. Hyperlipidemia; Lipitor 40 mg daily 4. Hypothyroidism; levothyroxine 112 mcg daily 5. Hypertension; patient takes Hyzaar 100-25 mg 1 daily which has been placed on hold given acute renal injury; we will resume therapy once renal function improves 6. Vitamin D deficiency; vitamin D3 25 mcg daily 7. Gastroesophageal reflux disease; Protonix 20 mg daily DVT prophylaxis; SCDs CODE STATUS; full code
--- NOTE | 2023-09-16 21:18 | NM ---
EXAMINATION TYPE: NM pul vent and perfuse DATE OF EXAM: 09/16/2023 CLINICAL INDICATION: Female, 78 years old with history of elevated D DIMER; COMPARISON: 2 view chest x-ray 09/15/2023 TECHNIQUE: Utilizing inhalation of 66.3 mCi Tc 99m DTPA aerosol and intravenous injection of 5.1 mCi of Tc 99m MAA, ventilation and perfusion images are acquired post injection in multiple projections. Images are interpreted utilizing modified PIOPED 2 criteria. FINDINGS: Comparison chest x-ray shows mild cardiomegaly, small left pleural effusion with adjacent mild infilt rate or atelectasis. Ventilation study shows some mild clumping of radiotracer which can be seen with air trapping or COPD . Relatively homogeneous radiotracer activity is otherwise seen throughout the lungs, with a small ar ea of decreased activity at the left lung base noted which is concordant with the x-ray findings. Perfusion study shows small clump of radiotracer activity in the right midlung slightly anteriorly. R elatively homogeneous activity is seen elsewhere throughout the lungs, with small area of decreased a ctivity at the left lung base, concordant with the chest x-ray findings, and matching the ventilation finding. There are no large mismatched segmental perfusion defects to strongly suggest presence of PE. IMPRESSION: Pulmonary embolism absent (normal or very low probability)
[2023-09-17 07:45] VITALS: BP 160/65; PULSE 60; RESP 18; TEMP 98
--- NOTE | 2023-09-17 08:57 | XR ---
EXAMINATION TYPE: XR chest 1V portable DATE OF EXAM: 09/17/2023 COMPARISON: 09/15/2023 INDICATION: Pneumonia TECHNIQUE: Single frontal view of the chest is obtained. FINDINGS: The heart size is prominent. The pulmonary vasculature is normal. There is blunting of the costophrenic angle. Correlate for small effusion. IMPRESSION: 1. Small left pleural effusion. 2. Mild cardiomegaly
[2023-09-17 09:22] LABS: Basophils # (A) 0.09 X 10*3/uL (0.00-0.10); Basophils % (A) 0.7 %; Eosinophils # (A) 0.41 X 10*3/uL (0.04-0.35); Eosinophils % (A) 3.4 %; HCT 36.2 % (37.2-46.3); HGB 11.4 g/dL (12.0-15.0); Lymphocytes # (A) 2.39 X 10*3/uL (0.90-5.00); Lymphocytes % (A) 19.7 %; MCH 27.2 pg (27.0-32.0); MCHC 31.5 g/dL (32.0-37.0); MCV 86.4 FL (80.0-97.0); Mean Platelet Volume 9.8 FL (9.5-12.2); Monocytes # (A) 1.19 X 10*3/uL (0.20-1.00); Monocytes % (A) 9.8 %; NRBC Per 100 WBC 0 X 10*3/uL (0.00-0.01); Neutrophils # (A) 8.04 X 10*3/uL (1.80-7.70); Neutrophils % (A) 66.2 %; Platelet Count 374 X 10*3/uL (140-440); RBC 4.19 X 10*6/uL (4.10-5.20); RDW 14.7 % (11.5-14.5); WBC 12.14 X 10*3/uL (4.50-10.00)
[2023-09-17 09:45] LABS: BUN/Creat Ratio 16.86 Ratio (12.00-20.00); Blood Urea Nitrogen 23.6 mg/dL (9.0-27.0); Calcium 9.5 mg/dL (8.7-10.3); Carbon Dioxide 21.9 mmol/L (21.6-31.8); Chloride 104 mmol/L (96-109); Glucose 106 mg/dL (70-110); Potassium 4.4 mmol/L (3.5-5.5); Sodium 138 mmol/L (135-145)
--- NOTE | 2023-09-17 11:31 | P.PN ---
Subjective Progress Note Date: 09/17/23 This is a very pleasant 78-year-old female patient with a known history of hypertension, hyperlipidemia, hypothyroidism, former smoker. She presented here to the emergency room yesterday with complaints of left sided chest wall, left upper quadrant discomfort. She states that is improved when she pushes on it. She initially had some pain on inspiration. No shortness of breath, cough or congestion. No fever or chills. No trauma. Chest x-ray reveals a very small left lower lobe infiltrate/pleural effusion. White count 15.2. Hemoglobin 12.5. Platelets 320. Sodium 137. Potassium 4.3. Bicarb 22. BUN 27. Creatinine 1.70. Glucose 112. Troponin negative x 1. She is seen today in consultation on the regular medical floor. She is currently sitting up in a chair at the bedside. Awake and alert in no acute distress. Maintaining good O2 saturations in the 90s on room air. She is afebrile. Hemodynamically stable. She was initiated on ceftriaxone and azithromycin. The patient is seen today September 17, 2023 in follow-up on the regular medical floor. She is currently sitting up in a chair at the bedside. Awake and alert in no acute distress. Maintaining O2 saturations in the 90s on room air. Her left-sided chest discomfort has nearly subsided. She did undergo a ventilation/perfusion scan that ruled out pulmonary embolism. Today's chest x- ray reveals a trace left pleural effusion. Mild cardiomegaly. Blood cultures revealed no growth. White count 12.1. Hemoglobin 11.4. Sodium 138. Potassium 4.4. Bicarb 22. BUN 4. Creatinine 1.4. Glucose 106. Procalcitonin 0.14. Currently on ceftriaxone. Objective - Vital Signs Vital signs: Vital Signs Temp 98 F 09/17/23 07:00 Pulse 60 09/17/23 07:00 Resp 18 09/17/23 07:00 BP 160/65 09/17/23 07:00 Pulse Ox 96 09/17/23 07:00 FiO2 Intake & Output 09/16/23 09/17/23 09/17/23 18:59 06:59 18:59 Other: # Voids 3 3 # Bowel Movements 1 - Exam GENERAL EXAM: Alert, active, pleasant 78-year-old female, on room air, comfortable in no apparent distress. HEAD: Normocephalic. EYES: Normal reaction of pupils, equal size. NOSE: Clear with pink turbinates. THROAT: No erythema or exudates. NECK: No masses, no JVD. CHEST: No chest wall deformity. LUNGS: Equal air entry with no crackles, wheeze, rhonchi or dullness. CVS: S1 and S2 normal with no audible murmur, regular rhythm. ABDOMEN: No hepatosplenomegaly, normal bowel sounds, no guarding or rigidity. SPINE: No scoliosis or deformity SKIN: No rashes CENTRAL NERVOUS SYSTEM: No focal deficits, tone is normal in all 4 extremities. EXTREMITIES: There is no peripheral edema. No clubbing, no cyanosis. Peripheral pulses are intact. - Labs CBC & Chem 7: 09/17/23 06:50 09/17/23 06:50 Labs: Abnormal Lab Results - Last 24 Hours (Table) 09/16/23 09/16/23 09/17/23 Range/Units 12:19 12:19 06:50 WBC 12.14 H (4.50-10.00) X 10*3/uL Hgb 11.4 L (12.0-15.0) g/dL Hct 36.2 L (37.2-46.3) % MCHC 31.5 L (32.0-37.0) g/dL RDW 14.7 H (11.5-14.5) % Neutrophils # 8.04 H (1.80-7.70) X 10*3/uL Monocytes # 1.19 H (0.20-1.00) X 10*3/uL Eosinophils # 0.41 H (0.04-0.35) X 10*3/uL D-Dimer 3.32 H (<0.60) mg/L FEU Anion Gap (4.00-12.00) mmol/L Est GFR (CKD-EPI) (>=60) Procalcitonin 0.14 H (0.02-0.09) ng/mL 09/17/23 Range/Units 06:50 WBC (4.50-10.00) X 10*3/uL Hgb (12.0-15.0) g/dL Hct (37.2-46.3) % MCHC (32.0-37.0) g/dL RDW (11.5-14.5) % Neutrophils # (1.80-7.70) X 10*3/uL Monocytes # (0.20-1.00) X 10*3/uL Eosinophils # (0.04-0.35) X 10*3/uL D-Dimer (<0.60) mg/L FEU Anion Gap 12.10 H (4.00-12.00) mmol/L Est GFR (CKD-EPI) 39 L (>=60) Procalcitonin (0.02-0.09) ng/mL Microbiology - Last 24 Hours (Table) 09/15/23 15:10 Blood Culture - Preliminary Blood 09/15/23 15:31 Blood Culture - Preliminary Blood Assessment and Plan Assessment: Atypical left-sided chest wall/upper quadrant pain. Ventilation/perfusion scan ruled out pulmonary embolism chest x-ray with trace left pleural effusion. Procalcitonin 0.14. Currently on ceftriaxone, completed azithromycin History of lower extremity edema normally on Lasix however it was stopped 1 month ago Acute on chronic kidney disease,current creatinine 1.4 Hypertension Hyperlipidemia Hypothyroidism Plan: The patient was seen and evaluated VQ scan, labs and medications reviewed Pulmonary embolism ruled out Procalcitonin borderline at 0.14 Completed azithromycin Discontinue ceftriaxone Continue 5 days of Ceftin Currently stable and on room air Cleared for discharge Follow-up in our office in 1 week This patient was seen independently by the pulmonary nurse practitioner addressing pulmonary issues I have personally seen and examined the patient, performed the documentation and the assessment and plan as written. Number of minutes spent on the visit: 25.
[2023-09-18] MEDS ORDERED: CEFDINIR 300 MG CAP PO SCH (09:00)
== END 2023-09-17 12:41 | disposition home or self-care (01) ==
LOC: EC 11:18 → 6NMEDSUR 15:23
PROVIDERS: ADMIT Internal Medicine; ATTEND Internal Medicine
DX: R06.02 Shortness of breath (principal); J90 Pleural effusion, not elsewhere classified; R91.8 Other nonspecific abnormal finding of lung field; E03.9 Hypothyroidism, unspecified; E86.0 Dehydration; E55.9 Vitamin D deficiency, unspecified; E78.5 Hyperlipidemia, unspecified; F10.20 Alcohol dependence, uncomplicated; F17.200 Nicotine dependence, unspecified, uncomplicated; I12.9 Hypertensive chronic kidney disease with stage 1 through stage 4 chronic kidney disease, or unspecified chronic kidney disease; I25.10 Atherosclerotic heart disease of native coronary artery without angina pectoris; N17.9 Acute kidney failure, unspecified; N18.9 Chronic kidney disease, unspecified; Z96.652 Presence of left artificial knee joint; Z79.899 Other long term (current) drug therapy
CPT/HCPCS: 96365; 96366 ×2; 96367; 99285; 36415; 93005; 85379; 80053; 80048; 87449; 83605; 83735; 84484; 85025 ×2; 85610; 85730; 87040; 84145; 71045; 71046; 78582; G0378 ×3; A9540; A9567; J0456; J0696 ×2

== ENCOUNTER → 2023-10-05 | Outpatient (CLI) | payer MEDICARE, BC ==
--- NOTE | 2023-10-06 14:30 | CT ---
EXAMINATION TYPE: CT chest wo con DATE OF EXAM: 10/05/2023 COMPARISON: HISTORY: previous abnormal exam/Xray. CT DLP: 791 mGycm, Automated exposure control for dose reduction was used. CONTRAST: Performed injected with 0 mL of Isovue 300. TECHNIQUE: Axial images were obtained at 5 mm thick sections. Reconstructed images are reviewed on [employer] computer in the coronal plane. FINDINGS: Portion of the thyroid visualized is normal. No suspicious lung nodules or focal infiltrates are present. No enlarged mediastinal or hilar adenopathy is evident. The ascending aorta diameter at the level o f the main pulmonary artery is 3.1 cm. The main pulmonary artery diameter at the bifurcation is 2.6 cm. Aortic arch is to the right of the trachea. Limited CT sections are obtained through the upper abdomen. Abdomen is essentially unremarkable. IMPRESSION: 1. No acute pulmonary process. 2. The apparent density at the right superior mediastinum on chest x-ray likely correlates with the r ight-sided aortic arch.
== END | disposition home or self-care (01) ==
LOC: RADCTMAIN 11:10
PROVIDERS: ATTEND Internal Medicine
DX: R91.8 Other nonspecific abnormal finding of lung field (principal)
CPT/HCPCS: 71250

== ENCOUNTER 2023-10-20 08:33 | Day surgery (SDC) | payer MEDICARE, BC ==
[2023-10-18 10:44] VITALS: BMI 43.9
[2023-10-20] MEDS ORDERED: SODIUM CHLORIDE 0.9% 1,000 ML IV SCH (09:00)
[2023-10-20] MEDS: LACTATED RINGERS 1,000 ML IV ONE (09:16)
[2023-10-20] MEDS ORDERED: ONDANSETRON 4 MG/2 ML VIAL ONE (09:27)
[2023-10-20] MEDS: ONDANSETRON 4 MG/2 ML VIAL IVP ONE (09:33)
[2023-10-20 09:41] VITALS: TEMP 98.1
[2023-10-20] MEDS: BENZOCAINE SPRAY 1 CAN TOPICAL ONE (10:02)
[2023-10-20] MEDS ORDERED: PROPOFOL 10 MG/ML 20 ML VIAL IV ONE (10:03)
[2023-10-20] MEDS ORDERED: LIDOCAINE 1% INJ 10MG/ML (20 ML MDV) ONE (10:03)
--- NOTE | 2023-10-20 10:30 | P.PCN ---
Date of Procedure: 10/20/23 Description of Procedure: Indication: Atrial fibrillation Procedure Description: After explaining the procedure to the patient, it's risk and complications, blood pressure, heart rate and O2 saturation were monitored. The throat was sprayed with Cetacaine. Patient received sedation per anesthesia department l. The probe was introduced into the esophagus without difficulty. Images were obtained. Following that, the probe was removed. There was no immediate complication. Findings: Left atrial size is normal, left atrial appendage is normal. Left ventricular size and systolic function are normal. The aortic valve revealed fibrocalcific changes of the aortic cusps with preserved opening. Calcification of the mitral valve leaflets was noted. The tricuspid valve is normal. No pericardial effusion was noted. Descending thoracic aorta was normal. Contrast bubble study revealed no shunting across the interatrial septum. Doppler: Pulse wave and color Doppler were obtained, and revealed moderate tricuspid with mild to moderate mitral regurgitation. There was no shunting by color Doppler study Conclusion: 1. Normal appearance of the left atrial appendage 2. Normal ventricle size and systolic function 3. Mild to moderate mitral with moderate tricuspid regurgitation and no significant pulmonary hypertension 4. No shunting across the intra-atrial septum 5. No pericardial effusion Cardioversion: After performing SISSY and obtaining sedated state synchronized biphasic cardioversion using 150 J was performed with rastafarian of sinus mechanism. There was no immediate complications.
[2023-10-20 11:52] VITALS: BP 143/77; PULSE 65; RESP 16
[2023-10-20] MEDS ORDERED: APIXABAN 5 MG TAB PO SCH (21:00)
[2023-10-21] MEDS ORDERED: LEVOTHYROXINE 112 MCG TAB PO SCH (06:30)
[2023-10-21] MEDS ORDERED: ATORVASTATIN 40 MG TAB PO SCH (09:00)
== END 2023-10-20 11:50 | disposition home or self-care (01) ==
LOC: OR 08:33
PROVIDERS: ATTEND Internal Medicine Interventional Cardiology
DX: I08.1 Rheumatic disorders of both mitral and tricuspid valves (principal); I48.11 Longstanding persistent atrial fibrillation; I25.10 Atherosclerotic heart disease of native coronary artery without angina pectoris; E78.5 Hyperlipidemia, unspecified; I12.9 Hypertensive chronic kidney disease with stage 1 through stage 4 chronic kidney disease, or unspecified chronic kidney disease; N18.9 Chronic kidney disease, unspecified; Z86.73 Personal history of transient ischemic attack (TIA), and cerebral infarction without residual deficits; Z88.2 Allergy status to sulfonamides; Z88.8 Allergy status to other drugs, medicaments and biological substances; Z79.01 Long term (current) use of anticoagulants; Z79.899 Other long term (current) drug therapy
CPT/HCPCS: 93312; 93320; 93325; 92960; J2405; J2001; J2704

== ENCOUNTER → 2024-01-31 | Outpatient (CLI) | payer MEDICARE, BC | END | disposition home or self-care (01) | LOC: LABPRL 10:25 | PROVIDERS: ATTEND Nurse Practitioner Family | DX: E03.9 Hypothyroidism, unspecified (principal); E55.9 Vitamin D deficiency, unspecified; I12.9 Hypertensive chronic kidney disease with stage 1 through stage 4 chronic kidney disease, or unspecified chronic kidney disease; N18.9 Chronic kidney disease, unspecified; R53.83 Other fatigue | CPT/HCPCS: 80053; 82306; 83036; 84439; 84443; 85025 ==

== ENCOUNTER → 2024-05-15 | Outpatient (CLI) | payer MEDICARE, BC ==
[2024-05-15 15:56] LABS: HCT 43.9 % (37.2-46.3); HGB 14.1 g/dL (12.0-15.0); MCH 28.2 pg (27.0-32.0); MCHC 32.1 g/dL (32.0-37.0); MCV 87.8 FL (80.0-97.0); Mean Platelet Volume 10.2 FL (9.5-12.2); NRBC Per 100 WBC 0 X 10*3/uL (0.00-0.01); Platelet Count 311 X 10*3/uL (140-440); RDW 13.6 % (11.5-14.5); WBC 10.74 X 10*3/uL (4.50-10.00)
[2024-05-15 16:13] LABS: Blood Urea Nitrogen 29.5 mg/dL (9.0-27.0); Carbon Dioxide 23.2 mmol/L (21.6-31.8); Chloride 106 mmol/L (96-109); Chol/HDL Ratio 2.56 Ratio; LDL Cholesterol,Calculated 87.8 mg/dL (0.0-131.0); Potassium 4.4 mmol/L (3.5-5.5); Sodium 139 mmol/L (135-145); VLDL Calculation 15.28 mg/dL (5.00-40.00)
[2024-05-15 16:14] LABS: ALT 11 U/L (8-44); AST 24 U/L (13-35)
== END | disposition home or self-care (01) ==
LOC: LABPAT 10:34
PROVIDERS: ATTEND Internal Medicine Clinical Cardiac Electrophysiology
DX: Z01.812 Encounter for preprocedural laboratory examination (principal); I48.19 Other persistent atrial fibrillation; E78.2 Mixed hyperlipidemia
CPT/HCPCS: 80051; 80061; 82565; 84450; 84460; 84520; 85027

== ENCOUNTER 2024-05-27 09:15 | Day surgery (SDC) | payer MEDICARE, BC ==
[2024-05-27] MEDS: SODIUM CHLORIDE 0.9% 1,000 ML IV SCH (09:49)
[2024-05-27] MEDS: ONDANSETRON 4 MG/2 ML VIAL IVP STA (10:02)
[2024-05-27 10:06] LABS: ALT 17 U/L (4-34); AST 24 U/L (14-36); African American GFR (CKD) 47 (>60 ml/min/1.73 sqM); Albumin 4.4 g/dL (3.5-5.0); Alkaline Phosphatase 117 U/L (38-126); Anion Gap 10 mmol/L; Blood Urea Nitrogen 26 mg/dL (7-17); Calcium 9.8 mg/dL (8.4-10.2); Carbon Dioxide 26 mmol/L (22-30); Chloride 103 mmol/L (98-107); Glucose 113 mg/dL (74-99); Non-African American GFR(CKD) 41 (>60 ml/min/1.73 sqM); Potassium 4.1 mmol/L (3.5-5.1); Sodium 139 mmol/L (137-145); Total Bilirubin 0.8 mg/dL (0.2-1.3); Total Protein 7.8 g/dL (6.3-8.2)
[2024-05-27] MEDS: IV FLUID CONTINUATION 1,000 ML IV ONE ×2 (10:41→15:37)
[2024-05-27] MEDS: HEPARIN SOD,PORK IN 0.45% NACL 25,000 UNIT in 0.45% NACL 1 250ML.BAG IV ONE (10:41)
[2024-05-27] MEDS ORDERED: MIDAZOLAM 2 MG/2 ML VIAL ONE (11:00)
[2024-05-27] MEDS ORDERED: HEPARIN SODIUM,PORCINE 10,000 UNIT/ML 1 ML VIAL ONE (11:00)
[2024-05-27] MEDS ORDERED: PROPOFOL 10 MG/ML 20 ML VIAL IV ONE (11:00)
[2024-05-27] MEDS ORDERED: ePHEDrine 50 MG/ML 1 ML VIAL ONE (11:00)
[2024-05-27] MEDS ORDERED: LIDOCAINE 1% INJ 10MG/ML (20 ML MDV) ONE (11:00)
[2024-05-27] MEDS ORDERED: fentaNYL (PF) 50 MCG/ML 2 ML AMP ONE (11:00)
[2024-05-27] MEDS ORDERED: PHENYLEPHRINE 10 MG/ML VIAL ONE (11:00)
[2024-05-27] MEDS ORDERED: SUCCINYLCHOLINE CHLORIDE 200 MG/10 ML VIAL IV ONE (11:00)
[2024-05-27] MEDS ORDERED: HEPARIN SODIUM,PORCINE 5,000 UNIT/ML 1 ML VIAL ONE (11:00)
[2024-05-27] MEDS: LIDOCAINE 1% INJ 10MG/ML (20 ML MDV) SQ ONE (11:43)
[2024-05-27] MEDS: IOPAMIDOL-370 100ML BTL INJ ONE (13:21)
[2024-05-27] MEDS ORDERED: PANTOPRAZOLE 40 MG TABLET PO PRN (13:46)
--- NOTE | 2024-05-27 13:59 | P.EPPROC ---
- EP Procedure Note Electrophysiology Procedure Note: PROCEDURE A. fib ablation with PVI, left atrial septal and left atrial roof ablation DIAGNOSIS Persistent atrial fibrillation, symptomatic, refractory to therapy RESULT No left atrial appendage mass seen on intracardiac echo, preserved LV systolic function Elevated left atrial pressures with prominent V waves Successful A. fib ablation/pulmonary vein isolation of all veins using cryo- ablation Complete entrance block in all 4 veins confirmed Left atrial septal ablation Left atrial roof ablation No evidence for phrenic nerve injury Esophageal deflection YES / NO Electrical cardioversion with a synchronized shock across the chest YES PROCEDURE DETAILS Written informed consent prior to procedure. Patient brought to the EP lab. General anesthesia given. Heparin administered. A city maintained above 300 seconds Both groins prepped and draped per protocol and venous sheaths placed. Esophagus intubated, circa catheter for temperature monitoring an endoscope for possible esophageal deflection. Phrenic nerve monitoring performed. Esophageal temperature monitoring performed . Esophageal deflection performed if circa catheter overlapping with the balloon or circa temperature less than 27.5C Intracardiac echocardiography performed. Pericardium evaluated. Left atrial a ppendage evaluated. Left atrium evaluated along with pulmonary veins Transseptal catheterization performed under fluoroscopic guidance and intracardiac echo guidance Cryoablation sheath exchanged, balloon catheter along with achieve catheter placed in the left atrium. Pulmonary veins isolated in the following sequence: Left superior pulmonary vein followed by left inferior pulmonary vein, followed by right inferior pulmonary vein and lastly right superior pulmonary vein. Phrenic nerve stimulation along with capture thresholds within the SVC and right superior pulmonary vein to identify the phrenic nerve proximity to the cryo- balloon. Pulmonary veins isolated and confirmed with entrance and exit block. Phrenic nerve integrity confirmed at the end of the procedure Ablation of the left atrial roof performed with sequential lesions from the left superior to the right superior pulmonary veins. Ablation of the electrograms confirmed Ablation of the left atrial septum performed with cannulation of the superior branch of the right inferior and the inferior branch of the right superior vein to achieve ablation of the posterior septum of the left atrium. Ablation of electrograms confirmed Electrical cardioversion performed for persistence of atrial fibrillation despite successful ablation. Diagnostic catheters for the high right atrium, His bundle, coronary sinus placed. LA and RA pressures recorded RA pressure: 19/6/13 LA pressure: 40/3/22 Diagnostic EP study with coronary sinus pacing and recording. post cardioversion measurements Baseline measurements: HV interval 106 ms and HV interval 43 ms, QRS 97 ms Venous sheaths were removed and hemostasis assured with a closure device. Patient extubated and transferred to recovery PROCEDURES PERFORMED Diagnostic EP study CS pacing and recording Left and right transseptal catheterization Catheter the mapping of the tachycardia Intracardiac echocardiography Pulmonary vein isolation with transseptal and comprehensive EPS, [id number] Left atrial roof line, +[id number] Linear ablation, left atrium septum, +[id number] Electrical cardioversion with a synchronized shock across the chest [id number]
--- NOTE | 2024-05-27 14:00 | P.PRLE ---
RE: Mariam Miller Dear Jostin Becerra underwent successful A-fib ablation However her left atrial pressures are elevated likely reflecting longstanding hypertension and hypertensive heart disease She will continue with anticoagulation lifelong and will follow-up with you and Dr. Fofana as before Thank you for entrusting me with the care of the patient Warm regards Sincerely Michael Carrion
--- NOTE | 2024-05-27 14:41 | P.HPCAR ---
History of Present Illness This is Dr. 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 EXAMINATION: Blood pressure 163/67 and 136/68 mmHg afebrile Pulse rate in the 80s irregular Breath sounds are clear no rhonchi no crackles Heart sounds S1-S2 are irregular but normal no murmurs No JVD Mild lower extremity edema REVIEW OF LABS, ECG & MEDICAL DATA Sodium 139 potassium 4.1 BUN 26 and creatinine 1.3 TSH 0.8 Physical Exam Vitals: Vital Signs Temp Pulse Resp BP Pulse Ox 05/27/24 13:57 96.8 F L 16 136/68 100 05/27/24 09:42 98.1 F 80 16 163/67 97 Intake and Output 05/26/24 05/27/24 05/27/24 22:59 06:59 14:59 Intake Total 834 Balance 834 Intake: IV 834 Other: Weight 107.1 kg Past Medical History Past Medical History: Atrial Fibrillation, CVA/TIA, GERD/Reflux, Hyperlipidemia, Hypertension, Osteoarthritis (OA), Sleep Apnea/CPAP/BIPAP, Thyroid Disorder, Vascular Disorder Additional Past Medical History / Comment(s): Irregular heart rate, "aorta grew on wrong side", right leg edema, hx TIA X5, no residual effects, circulation problems, muscle spasms legs & feet, "kidney function low, but improving", has CPAP. History of Any Multi-Drug Resistant Organisms: None Reported Past Surgical History: Hysterectomy, Joint Replacement Additional Past Surgical History / Comment(s): Left knee replacement, bilateral cataracts removed. cardioversion Past Anesthesia/Blood Transfusion Reactions: Motion Sickness, Postoperative Nausea & Vomiting (PONV) Additional Past Anesthesia/Blood Transfusion Reaction / Comment(s): Daughter PONV. Smoking Status: Former smoker - Past Family History Mother Family Medical History: No Reported History Physical Examination Vital Signs Temp Pulse Resp BP Pulse Ox 05/27/24 13:57 96.8 F L 16 136/68 100 05/27/24 09:42 98.1 F 80 16 163/67 97 Intake and Output 05/26/24 05/27/24 05/27/24 22:59 06:59 14:59 Intake Total 834 Balance 834 Intake: IV 834 Other: Weight 107.1 kg Results 05/27/24 09:45 Cardiac Enzymes 05/27/24 Range/Units 09:45 AST 24 (14-36) U/L Comprehensive Metabolic Panel 05/27/24 Range/Units 09:45 Sodium 139 (137-145) mmol/L Potassium 4.1 (3.5-5.1) mmol/L Chloride 103 (98-107) mmol/L Carbon Dioxide 26 (22-30) mmol/L BUN 26 H (7-17) mg/dL Creatinine 1.27 H (0.52-1.04) mg/dL Glucose 113 H (74-99) mg/dL Calcium 9.8 (8.4-10.2) mg/dL AST 24 (14-36) U/L ALT 17 (4-34) U/L Alkaline Phosphatase 117 (38-126) U/L Total Protein 7.8 (6.3-8.2) g/dL Albumin 4.4 (3.5-5.0) g/dL Current Medications Generic Name Dose Route Start Last Admin Trade Name Freq PRN Reason Stop Dose Admin Acetaminophen 650 mg 05/27/24 13:53 Acetaminophen Tab 325 Mg Tab PO 06/26/24 13:52 Q6HR PRN Mild Pain (Scale 1 to 3) Apixaban 5 mg 05/27/24 21:00 Apixaban 5 Mg Tab PO 06/26/24 20:59 BID KOREY Protocol Atorvastatin Calcium 40 mg 05/28/24 09:00 Atorvastatin 40 Mg Tab PO 06/27/24 08:59 DAILY KOREY Furosemide 20 mg 05/28/24 09:00 Furosemide 20 Mg Tab PO 06/27/24 08:59 DAILY KOREY Sodium Chloride 1,000 mls @ 20 mls/hr 05/27/24 06:02 05/27/24 09:49 Saline 0.9% IV 06/26/24 06:01 20 mls/hr .Q24H KOREY Administration Acetaminophen 1,000 mg/ IV 100 mls @ 400 mls/hr 05/27/24 15:30 Solution IVPB 05/27/24 15:44 ONCE ONE Levothyroxine Sodium 112 mcg 05/28/24 09:00 Levothyroxine 112 Mcg Tab PO 06/27/24 08:59 QAM KOREY Non-Formulary Medication 1 tab 05/28/24 09:00 Losartan/Hydrochlorothiazide [Losartan-Hctz 100-25 Mg Tab] PO 06/27/24 08:59 DAILY KOREY Pantoprazole Sodium 40 mg 05/27/24 13:46 Pantoprazole 40 Mg Tablet PO DAILY PRN GI Upset Sodium Chloride 12 ml 05/27/24 13:53 Sodium Chloride 0.9% Flush 10 Ml Syringe IV 06/26/24 13:52 Q12HR PRN Line Flush Intake and Output 05/26/24 05/27/24 05/27/24 22:59 06:59 14:59 Intake Total 834 Balance 834 Intake: IV 834 Other: Weight 107.1 kg Patient Weight 05/28/24 06:59 Weight 107.1 kg 05/27/24 09:45
[2024-05-27] MEDS: ACETAMINOPHEN IV (For NPO) 1,000 MG in EMPTY BAG 1 BAG IVPB ONE (14:58)
[2024-05-27] MEDS: APIXABAN 5 MG TAB PO SCH (20:31)
[2024-05-27] MEDS: ACETAMINOPHEN TAB 325 MG TAB PO PRN (20:35)
[2024-05-28] MEDS: LEVOTHYROXINE 112 MCG TAB PO SCH (06:19)
[2024-05-28 07:38] VITALS: BP 124/76; PULSE 64; RESP 16; TEMP 97.5
[2024-05-28] MEDS: LOSARTAN-HCTZ 50-12.5 MG 1 EACH TAB PO SCH (08:41)
[2024-05-28] MEDS: ATORVASTATIN 40 MG TAB PO SCH (08:41)
[2024-05-28] MEDS: FUROSEMIDE 20 MG TAB PO SCH (08:41)
--- NOTE | 2024-05-28 10:09 | P.DS ---
Providers Attending physician: Michael Carrion Primary care physician: [facility] Course: Patient is a 79-year-old female who follows in the office of Dr. Fofana. Patient underwent pulmonary vein isolation yesterday with Dr. Hill. She had complete entrance block of all 4 veins as well as left atrial septal ablation and left atrial roof ablation. Patient did well overnight. She did have some chest discomfort when lying flat, which has resolved this morning. No shortness of breath. Mild tenderness in her right groin. GENERAL: Well-appearing, well-nourished and in no acute distress. NECK: Supple without JVD or thyromegaly. LUNGS: Breath sounds clear to auscultation bilaterally. Respiration equal and unlabored. No wheezes, rales or rhonchi. HEART: Regular rate and rhythm without murmurs, rubs or gallops. S1 and S2 heard. EXTREMITIES: Normal range of motion, no edema. No clubbing or cyanosis. Peripheral pulses intact and strong. No bruising or hematoma at groin sites TELEMETRY: Sinus rhythm overnight IMPRESSION: Symptomatic persistent atrial fibrillation Status post pulmonary vein isolation PLAN: Patient was instructed to continue anticoagulation and not hold for 3 months postprocedure Outpatient follow-up for elevated LVEDP and postprocedure blood pressure readings Outpatient follow-up with her primary fulling machine operator Dr. Fofana in 1 week I am dictating on behalf of Dr Michael Carrion's history/physical and assessment/plan. Plan - Discharge Summary Discharge Rx Participant: Yes New Discharge Prescriptions: Continue Omeprazole 20 mg PO DAILY PRN PRN Reason: Gi Upset Atorvastatin [Lipitor] 40 mg PO DAILY Levothyroxine Sodium [Synthroid] 112 mcg PO QAM Cholecalciferol [Vitamin D3 (25 Mcg = 1000 Iu)] 25 mcg PO DAILY Apixaban [Eliquis] 5 mg PO BID Furosemide [Lasix] 20 mg PO DAILY Losartan/Hydrochlorothiazide [Losartan-Hctz 100-25 mg Tab] 1 tab PO DAILY Cyanocobalamin (Vitamin B-12) [Vitamin B-12] 1,000 mcg PO DAILY Discharge Medication List Atorvastatin [Lipitor] 40 mg PO DAILY 08/27/20 [History] Levothyroxine Sodium [Synthroid] 112 mcg PO QAM 08/27/20 [History] Omeprazole 20 mg PO DAILY PRN 08/27/20 [History] Cholecalciferol [Vitamin D3 (25 Mcg = 1000 Iu)] 25 mcg PO DAILY 09/15/23 [History] Apixaban [Eliquis] 5 mg PO BID 10/18/23 [History] Cyanocobalamin (Vitamin B-12) [Vitamin B-12] 1,000 mcg PO DAILY 10/18/23 [H istory] Furosemide [Lasix] 20 mg PO DAILY 05/24/24 [History] Losartan/Hydrochlorothiazide [Losartan-Hctz 100-25 mg Tab] 1 tab PO DAILY 05/24/24 [History] Follow up Appointment(s)/Referral(s): Farrukh Fofana MD [STAFF PHYSICIAN] - 1 Week Activity/Diet/Wound Care/Special Instructions: Post EP study - Ablation instructions 1. Keep access sites dry for 2 days. 2. No heavy lifting or straining for 2 days. 3. Avoid bending the hips repeatedly for 2 days. 4. You may go up and down stairs slowly 5. If you have had an ablation for atrial fibrillation or atrial flutter and are on a blood thinner, do not stop the blood thinner even temporarily for 3 months post ablation Call if the following is noted 1. Bleeding, increasing swelling or pain at the access sites. 2. Increasing chest discomfort, especially upon taking a deep breath. 3. Increasing shortness of breath, at rest or with exertion. 4. Undue cough / phlegm 5. Difficulty or pain while swallowing. 6. Pain or change in color in the extremities. 7. Fever, chills, rigors. 8. Increasing headache or neurologic symptoms. 9. Dizziness, fainting, palpitations For patients who have undergone an A-fib ablation /atrial flutter ablation Strict instruction; do NOT stop anticoagulation (Eliquis/Xarelto/Pradaxa) for the next 2 months temporarily, for any elective, nonurgent surgery. This increases the risk of stroke, post A-fib ablation Discharge Disposition: HOME SELF-CARE
== END 2024-05-28 13:25 | disposition home or self-care (01) ==
LOC: CATHEP 09:15 → 6NMEDSUR 15:51 → CATHEP 05-28 13:25
PROVIDERS: ATTEND Internal Medicine Clinical Cardiac Electrophysiology
DX: I25.10 Atherosclerotic heart disease of native coronary artery without angina pectoris (principal); I48.19 Other persistent atrial fibrillation; G47.30 Sleep apnea, unspecified; E78.5 Hyperlipidemia, unspecified; I10 Essential (primary) hypertension; K21.9 Gastro-esophageal reflux disease without esophagitis; M19.90 Unspecified osteoarthritis, unspecified site; Z86.73 Personal history of transient ischemic attack (TIA), and cerebral infarction without residual deficits; Z90.710 Acquired absence of both cervix and uterus; Z96.652 Presence of left artificial knee joint; Z87.891 Personal history of nicotine dependence; Z88.2 Allergy status to sulfonamides; Z79.01 Long term (current) use of anticoagulants; Z79.02 Long term (current) use of antithrombotics/antiplatelets; Z79.890 Hormone replacement therapy; Z79.899 Other long term (current) drug therapy
CPT/HCPCS: 92960; 93656; 93657; 86900; 86901; 80053; 84443; 86850; J2405; J2003; J0131; Q9967; J1644

== ENCOUNTER → 2024-07-19 | Outpatient (CLI) | payer MEDICARE, BC ==
[2024-07-19 15:15] LABS: ALT 13 U/L (8-44); AST 21 U/L (13-35); Chol/HDL Ratio 2.22 Ratio; LDL Cholesterol,Calculated 61.3 mg/dL (0.0-131.0); VLDL Calculation 15.74 mg/dL (5.00-40.00)
== END | disposition home or self-care (01) ==
LOC: LABWHC1 11:08
PROVIDERS: ATTEND Internal Medicine Interventional Cardiology
DX: E78.2 Mixed hyperlipidemia (principal)
CPT/HCPCS: 36415; 80061; 84450; 84460

== ENCOUNTER → 2024-09-25 | Outpatient (CLI) | payer MEDICARE, BC ==
--- NOTE | 2024-09-25 16:26 | MM ---
Reason for Exam: Screening (asymptomatic). Last mammogram was performed 4 year(s) and 0 month(s) ago. Patient History: Menarche at age 11. First Full-Term at age 19. Postmenopausal. Maternal grandmother had ovarian cancer, age 70. Risk Values: Karolyn 5 year model risk: 1.4%. NCI Lifetime model risk: 2.7%. Prior Study Comparison: 10/04/2004 Bilateral Screening Mammogram, [facility]. 08/07/2014 Bilateral Screening Mammogram, [facility]. 09/23/2020 Bilateral Screening Mammogram, [facility]. Tissue Density: The breasts are almost entirely fatty. Findings: Analyzed By CAD. Benign bilateral oil cyst and secretory calcifications. There is no suspicious group of microcalcifications or new suspicious mass in either breast. Overall Assessment: Benign, BI-RAD 2 Management: Screening Mammogram of both breasts in 1 year. Patient should continue monthly self-breast exams. A clinical breast exam by your physician is recommended on an annual basis. This exam should not preclude additional follow-up of suspicious palpable abnormalities. Note on Karolyn scores and lifetime risk: 1. A Karolyn score greater than 3% is considered moderate risk. If this is the case, consider specialist referral to assess eligibility for a risk reducing agent. 2. If overall lifetime risk for the development of breast cancer is 20% or higher, the patient may qualify for future screening with alternating mammogram and breast MRI. [facility], , 09/25/2024 4:08 PM. Electronically signed and approved by: Fabian Ling M.D. Radiologist
== END | disposition home or self-care (01) ==
LOC: RADMAMWWP 14:53
PROVIDERS: ATTEND Family Medicine
DX: Z12.31 Encounter for screening mammogram for malignant neoplasm of breast (principal); N60.01 Solitary cyst of right breast; N60.02 Solitary cyst of left breast; R92.1 Mammographic calcification found on diagnostic imaging of breast; R92.313 Mammographic fatty tissue density, bilateral breasts; Z78.0 Asymptomatic menopausal state
CPT/HCPCS: 77063; 77067